=== PATIENT | female | born 1955 | race Caucasian/White ===

== ENCOUNTER → 2016-03-18 | Outpatient (CLI) | payer MEDICARE, MEDICAID | LOC: WI 08:46 | PROVIDERS: ATTEND Internal Medicine | DX: Z53.9 Procedure and treatment not carried out, unspecified reason (principal) ==

== ENCOUNTER → 2016-07-28 | Outpatient (CLI) | payer MEDICARE, MEDICAID ==
--- NOTE | 2016-07-28 14:15 | RADIOLOGY REPORT (SQ) ---
EXAM DESCRIPTION: LUMBAR SPINE COMPLETE COMPLETED DATE/TIME: 07/28/2016 12:51 pm REASON FOR STUDY: RADICULOPATHY, THORACOLUMBAR REGION M54.15 RADICULOPATHY, THORACOLUMBAR REGION COMPARISON: MRI 05/06/2016, 05/18/2015 Lumbar myelogram 02/03/2014 NUMBER OF VIEWS: Five views including obliques. TECHNIQUE: AP, lateral, oblique, and sacral radiographic images acquired of the lumbar spine. LIMITATIONS: None. FINDINGS: MINERALIZATION: Osteopenic SEGMENTATION: Normal. No transitional anatomy. ALIGNMENT: Convex rightward lumbar curvature VERTEBRAE: Chronic appearing 25% upper endplate compression at L1 DISCS: Post discectomy and fusion with posterior element hardware and disc spacer at L4-5. Asymmetri c left greater than right disc space loss of height at L3-4 POSTERIOR ELEMENTS: Bilateral transpedicular screws and dorsal fixation hardware at L4-5. No lucency around the hardware to suggest loosening. Facet arthropathy left greater than right at L5-S1 HARDWARE: As above PARASPINAL SOFT TISSUES: Calcified abdominal aorta without calcified aneurysm PELVIS: Intact as visualized. No fractures or worrisome bone lesions. SI joints intact. OTHER: No other significant finding. IMPRESSION: Stable appearance compared to previous studies TECHNICAL DOCUMENTATION: JOB ID: [id number]- All Rights Reserved
== END ==
LOC: OD 12:24
PROVIDERS: ATTEND Internal Medicine
DX: M54.15 Radiculopathy, thoracolumbar region (principal)
CPT/HCPCS: 72110

== ENCOUNTER → 2016-09-19 | Outpatient (CLI) | payer MEDICARE, MEDICAID ==
--- NOTE | 2016-09-19 13:02 | WOMENS IMAGING REPORT ---
EXAM DESCRIPTION: BILAT DIAGNOSTIC MAMMO W/CAD; U/S BREAST UNILAT LIMITED COMPLETED DATE/TIME: 09/19/2016 11:02 am; 09/19/2016 12:34 pm REASON FOR STUDY: N64.4, MASTODYNIA; MASTODYNIA BILATERAL N64.4 MASTODYNIA COMPARISON: 12/10/2015, 03/17/2015, and 05/16/2013. TECHNIQUE: Standard craniocaudal and mediolateral oblique views of each breast recorded using digita l acquisition. Additional true lateral views of both breasts also acquired. LIMITATIONS: None. FINDINGS: RIGHT BREAST MASSES: No suspicious masses. CALCIFICATIONS: No new or suspicious calcifications. ARCHITECTURAL DISTORTION: None. DEVELOPING DENSITY: None. ASYMMETRY: None noted. OTHER: No other significant findings. LEFT BREAST MASSES: No suspicious masses. CALCIFICATIONS: No new or suspicious calcifications. ARCHITECTURAL DISTORTION: None. DEVELOPING DENSITY: None. ASYMMETRY: Stable mild asymmetry. OTHER: No other significant finding. Read with the assistance of CAD: .[facility] - R2 Cenova Version 1.3 .[facility] - R2 Cenova Version 1.3 .[facility] - R2 Cenova Version 2.4 .[facility] - R2 Cenova Version 2.4 .[facility] - R2 Windows Application Packager Version 9.2 BREAST ULTRASOUND: TECHNIQUE: Static and dynamic grayscale images acquired of the right and left breast in the specific areas of clinical/mammographic concern. Selected color Doppler images recorded. ELASTOGRAPHY PERFORMED: No. LIMITATIONS: None. FINDINGS: MASS: No mass identified. Normal glandular tissue. ELASTOGRAPHY CHARACTERISTICS: Not applicable. OTHER: No other significant finding. IMPRESSION: Stable mammographic appearance of both breasts. Stable mild asymmetry in the left breas t. No worrisome mammographic or sonographic finding in either breast in the areas of concern. BREAST DENSITY: b. There are scattered areas of fibroglandular density. BIRAD: 2 Benign findings. RECOMMENDATION: RECOMMENDED FOLLOW UP: Birads 1 or 2: The patient should resume routine screening . SPECIFIC INTERVENTION/IMAGING/CONSULTATION RECOMMENDED:No additional intervention/ imaging/consultati on needed at this time. COMMUNICATION:The imaging findings were not discussed with the patient. Her referring provider has be en notified of the findings. COMMENT: The patient has been notified of the results by letter per MQSA requirements. Additional no tification policies are in place for contacting patient with suspicious or incomplete findings. Quality ID #225: The [employer] recommends an annual screening mammogram for women aged 40 years or over. This facility utilizes a reminder system to ensure that all patients receive reminder letters, and/or direct phone calls for appointments. This includes reminders for routine scr eening mammograms, diagnostic mammograms, or other Breast Imaging Interventions when appropriate. Th is patient will be placed in the appropriate reminder system. The [employer] (ACR) has developed recommendations for screening MRI of the breast s in certain patient populations, to be used in conjunction with mammography. Breast MRI surveillanc e may be appropriate for women with more than 20% lifetime risk of developing breast cancer as deter mined by genetic testing, significant family history of the disease, or history of mantle radiation f or Hodgkins Disease. ACR Practice Guidelines 2008. TECHNICAL DOCUMENTATION: FINDING NUMBER: (1) ASSESSMENT: (1) JOB ID: [id number] [employer]- All Rights Reserved
--- NOTE | 2016-09-19 13:02 | WOMENS IMAGING REPORT ---
EXAM DESCRIPTION: BILAT DIAGNOSTIC MAMMO W/CAD; U/S BREAST UNILAT LIMITED COMPLETED DATE/TIME: 09/19/2016 11:02 am; 09/19/2016 12:34 pm REASON FOR STUDY: N64.4, MASTODYNIA; MASTODYNIA BILATERAL N64.4 MASTODYNIA COMPARISON: 12/10/2015, 03/17/2015, and 05/16/2013. TECHNIQUE: Standard craniocaudal and mediolateral oblique views of each breast recorded using digita l acquisition. Additional true lateral views of both breasts also acquired. LIMITATIONS: None. FINDINGS: RIGHT BREAST MASSES: No suspicious masses. CALCIFICATIONS: No new or suspicious calcifications. ARCHITECTURAL DISTORTION: None. DEVELOPING DENSITY: None. ASYMMETRY: None noted. OTHER: No other significant findings. LEFT BREAST MASSES: No suspicious masses. CALCIFICATIONS: No new or suspicious calcifications. ARCHITECTURAL DISTORTION: None. DEVELOPING DENSITY: None. ASYMMETRY: Stable mild asymmetry. OTHER: No other significant finding. Read with the assistance of CAD: .[facility] - R2 Cenova Version 1.3 .[facility] - R2 Cenova Version 1.3 .[facility] - R2 Cenova Version 2.4 .[facility] [place] - R2 Cenova Version 2.4 .[facility] - R2 Technical Support Internship Version 9.2 BREAST ULTRASOUND: TECHNIQUE: Static and dynamic grayscale images acquired of the right and left breast in the specific areas of clinical/mammographic concern. Selected color Doppler images recorded. ELASTOGRAPHY PERFORMED: No. LIMITATIONS: None. FINDINGS: MASS: No mass identified. Normal glandular tissue. ELASTOGRAPHY CHARACTERISTICS: Not applicable. OTHER: No other significant finding. IMPRESSION: Stable mammographic appearance of both breasts. Stable mild asymmetry in the left breas t. No worrisome mammographic or sonographic finding in either breast in the areas of concern. BREAST DENSITY: b. There are scattered areas of fibroglandular density. BIRAD: 2 Benign findings. RECOMMENDATION: RECOMMENDED FOLLOW UP: Birads 1 or 2: The patient should resume routine screening . SPECIFIC INTERVENTION/IMAGING/CONSULTATION RECOMMENDED:No additional intervention/ imaging/consultati on needed at this time. COMMUNICATION:The imaging findings were not discussed with the patient. Her referring provider has be en notified of the findings. COMMENT: The patient has been notified of the results by letter per MQSA requirements. Additional no tification policies are in place for contacting patient with suspicious or incomplete findings. Quality ID #[id number]: The [employer] recommends an annual screening mammogram for women aged 40 years or over. This facility utilizes a reminder system to ensure that all patients receive reminder letters, and/or direct phone calls for appointments. This includes reminders for routine scr eening mammograms, diagnostic mammograms, or other Breast Imaging Interventions when appropriate. Th is patient will be placed in the appropriate reminder system. The [employer] (ACR) has developed recommendations for screening MRI of the breast s in certain patient populations, to be used in conjunction with mammography. Breast MRI surveillanc e may be appropriate for women with more than 20% lifetime risk of developing breast cancer as deter mined by genetic testing, significant family history of the disease, or history of mantle radiation f or Hodgkins Disease. ACR Practice Guidelines 2008. TECHNICAL DOCUMENTATION: FINDING NUMBER: (1) ASSESSMENT: (1) JOB ID: [id number] [employer]- All Rights Reserved
--- NOTE | 2016-09-19 13:02 | WOMENS IMAGING REPORT ---
EXAM DESCRIPTION: BILAT DIAGNOSTIC MAMMO W/CAD; U/S BREAST UNILAT LIMITED COMPLETED DATE/TIME: 09/19/2016 11:02 am; 09/19/2016 12:34 pm REASON FOR STUDY: N64.4, MASTODYNIA; MASTODYNIA BILATERAL N64.4 MASTODYNIA COMPARISON: 12/10/2015, 03/17/2015, and 05/16/2013. TECHNIQUE: Standard craniocaudal and mediolateral oblique views of each breast recorded using digita l acquisition. Additional true lateral views of both breasts also acquired. LIMITATIONS: None. FINDINGS: RIGHT BREAST MASSES: No suspicious masses. CALCIFICATIONS: No new or suspicious calcifications. ARCHITECTURAL DISTORTION: None. DEVELOPING DENSITY: None. ASYMMETRY: None noted. OTHER: No other significant findings. LEFT BREAST MASSES: No suspicious masses. CALCIFICATIONS: No new or suspicious calcifications. ARCHITECTURAL DISTORTION: None. DEVELOPING DENSITY: None. ASYMMETRY: Stable mild asymmetry. OTHER: No other significant finding. Read with the assistance of CAD: .[facility] - R2 Cenova Version 1.3 .[facility] - R2 Cenova Version 1.3 .[facility] - R2 Cenova Version 2.4 .[facility] - R2 Cenova Version 2.4 .[facility] - R2 Casket Upholsterer Version 9.2 BREAST ULTRASOUND: TECHNIQUE: Static and dynamic grayscale images acquired of the right and left breast in the specific areas of clinical/mammographic concern. Selected color Doppler images recorded. ELASTOGRAPHY PERFORMED: No. LIMITATIONS: None. FINDINGS: MASS: No mass identified. Normal glandular tissue. ELASTOGRAPHY CHARACTERISTICS: Not applicable. OTHER: No other significant finding. IMPRESSION: Stable mammographic appearance of both breasts. Stable mild asymmetry in the left breas t. No worrisome mammographic or sonographic finding in either breast in the areas of concern. BREAST DENSITY: b. There are scattered areas of fibroglandular density. BIRAD: 2 Benign findings. RECOMMENDATION: RECOMMENDED FOLLOW UP: Birads 1 or 2: The patient should resume routine screening . SPECIFIC INTERVENTION/IMAGING/CONSULTATION RECOMMENDED:No additional intervention/ imaging/consultati on needed at this time. COMMUNICATION:The imaging findings were not discussed with the patient. Her referring provider has be en notified of the findings. COMMENT: The patient has been notified of the results by letter per MQSA requirements. Additional no tification policies are in place for contacting patient with suspicious or incomplete findings. Quality ID #[id number]: The [employer] recommends an annual screening mammogram for women aged 40 years or over. This facility utilizes a reminder system to ensure that all patients receive reminder letters, and/or direct phone calls for appointments. This includes reminders for routine scr eening mammograms, diagnostic mammograms, or other Breast Imaging Interventions when appropriate. Th is patient will be placed in the appropriate reminder system. The [employer] (ACR) has developed recommendations for screening MRI of the breast s in certain patient populations, to be used in conjunction with mammography. Breast MRI surveillanc e may be appropriate for women with more than 20% lifetime risk of developing breast cancer as deter mined by genetic testing, significant family history of the disease, or history of mantle radiation f or Hodgkins Disease. ACR Practice Guidelines 2008. TECHNICAL DOCUMENTATION: FINDING NUMBER: (1) ASSESSMENT: (1) JOB ID: [id number] [employer]- All Rights Reserved
== END ==
LOC: WI 10:36
PROVIDERS: ATTEND Physician Assistant
DX: N64.4 Mastodynia (principal)
CPT/HCPCS: 76642; G0204; 77066

== ENCOUNTER 2017-02-12 19:34 | Inpatient (IN) | payer MEDICARE, MEDICAID ==
[2017-02-12] MEDS ORDERED: IPRATROPIUM/ALBUTEROL 0.5-2.5 MG/3 ML AMPUL NEB ONE ×3 (19:57→20:08)
[2017-02-12] MEDS ORDERED: METHYLPREDNISOLONE INJ 125 MG/2 ML SDV IV ONE (19:58)
[2017-02-12] MEDS ORDERED: MAGNESIUM SULFATE/D5W 1 GM/100 ML RTUPB IV PRN (19:58)
--- NOTE | 2017-02-12 20:01 | ER Document Report ---
ED Respiratory Problem - General Chief Complaint: Breathing Difficulty Stated Complaint: DIFFICULTY BREATHING Time Seen by Provider: 02/12/17 19:54 Notes: Patient is a 61-year-old female that comes emergency department for chief complaint of difficulty breathing. She states she has a history of COPD, she still smokes, she has had worsening symptoms for the past 5 days. She is not on home oxygen, she is using a home nebulizer which she states is not helping. She states she thinks she got "bronchitis" from her relative. She denies fevers. She is up-to-date on her influenza vaccine. She does admit to previous admissions for COPD but denies ever being intubated. TRAVEL OUTSIDE OF THE [place] IN LAST 30 DAYS: No - Related Data Allergies/Adverse Reactions: cephalexin monohydrate [From Keflex] Adverse Reaction (Mild, Verified 02/12/17 19:36) alivia erythromycin base [Erythromycin Base] Adverse Reaction (Mild, Verified 02/12/17 19:36) alivia Past Medical History - General Information source: Patient - Social History Smoking Status: Current Every Day Smoker Frequency of alcohol use: None Drug Abuse: None Lives with: Family Family History: Reviewed & Not Pertinent Patient has suicidal ideation: No Patient has homicidal ideation: No - Past Medical History Cardiac Medical History: Denies: Hx Coronary Artery Disease, Hx Heart Attack, Hx Hypertension Pulmonary Medical History: Reports: Hx Bronchitis - URI, Hx COPD - inhalers Denies: Hx Asthma, Hx Pneumonia, Hx Tuberculosis Neurological Medical History: Denies: Hx Cerebrovascular Accident, Hx Seizures Renal/ Medical History: Denies: Hx Peritoneal Dialysis Musculoskeltal Medical History: Denies Hx Arthritis Psychiatric Medical History: Reports: Hx Depression Past Surgical History: Reports: Hx Hysterectomy, Hx Orthopedic Surgery - back surgery - lumbar fusion, carpal tunnel surgery, Hx Urinary Tract Surgery - bladder tuck. Denies: Hx Pacemaker - Immunizations Hx Diphtheria, Pertussis, Tetanus Vaccination: Yes Hx Pneumococcal Vaccination: 02/27/13 Review of Systems - Review of Systems Constitutional: No symptoms reported EENT: No symptoms reported Cardiovascular: No symptoms reported Respiratory: See HPI Gastrointestinal: No symptoms reported Genitourinary: No symptoms reported Female Genitourinary: No symptoms reported Musculoskeletal: No symptoms reported Skin: No symptoms reported Hematologic/Lymphatic: No symptoms reported Neurological/Psychological: No symptoms reported Physical Exam - Vital signs Vitals: Temp Pulse Resp BP Pulse Ox 98.2 F 95 20 142/83 H 94 02/12/17 19:42 02/12/17 19:42 02/12/17 19:42 02/12/17 19:42 02/12/17 19:42 Interpretation: Normal - General General appearance: Alert, Anxious In distress: Mild - HEENT Head: Normocephalic, Atraumatic Eyes: Normal Pupils: PERRL - Respiratory Respiratory status: Respiratory distress - Mild, Labored, Tachypnea Chest status: Nontender Breath sounds: Decreased air movement - Decreased air movement throughout, expiratory wheezes throughout, a few scattered coarse breath sounds additionally , no rales, no other abnormality noted otherwise, Wheezing Chest palpation: Normal - Cardiovascular Rhythm: Regular. No: Tachycardia Heart sounds: Normal auscultation, S1 appreciated, S2 appreciated Murmur: No - Abdominal Inspection: Normal Distension: No distension Bowel sounds: Normal Tenderness: Nontender. No: Tender, Guarding - Back Back: Normal, Nontender. No: Tender, CVA tenderness - Extremities General upper extremity: Normal inspection, Nontender, Normal strength, Normal temperature General lower extremity: Normal inspection, Nontender, Normal strength, Normal temperature. No: Edema - Neurological Neuro grossly intact: Yes Cognition: Normal Orientation: AAOx4 [place] Coma Scale Eye Opening: Spontaneous Jaya Coma Scale Verbal: Oriented [place] Coma Scale Motor: Obeys Commands [place] Coma Scale Total: 15 Speech: Normal Motor strength normal: LUE, RUE, LLE, RLE Sensory: Normal - Psychological Associated symptoms: Normal affect, Normal mood - Skin Skin Temperature: Warm Skin Moisture: Dry Skin Color: Normal Course - Re-evaluation Re-evalutation: On initial presentation patient is in mild respiratory distress with tachypnea, labored breathing, expiratory wheezes. Presentation consistent with COPD exacerbation. Pulse oxygenation is 94%. Beginning treatments, will monitor closely. On reevaluation patient still has tachypnea and mildly labored breathing but she is moving air much better, she states she feels improved. On 2 L nasal cannula her pulse oxygen saturation is ranging from 91-95%. Clinically she appears improved. Chest x-ray unremarkable. CBC, CMP, cardiac enzymes unremarkable. EKG showing sinus rhythm with no T-wave inversions or ST segment changes in consecutive leads. On monitoring patient had 2 episodes of what appeared to be possibly ventricular tachycardia. Patient denies having any dizziness, palpitations, or chest pain. She denies history of the same. Patient given magnesium for COPD exacerbation. 02/12/17 On reevaluation patient is significantly improved from prior but she still has expiratory wheezes and states she feels somewhat out of breath. She still has mild tachypnea. Patient will most likely not be a candidate for home therapy as a result. She declines ambulation with monitoring. Because of significant COPD exacerbation with only partial alleviation of symptoms along with possible tachyarrhythmias patient will be discussed with hospitalist for admission. Patient states agreement with this plan. Discussed with Dr. Maldonado, internal medicine, patient will be admitted to the [facility] full admission. - Vital Signs Vital signs: Temp Pulse Resp BP Pulse Ox 98.2 F 95 19 139/76 H 93 02/12/17 19:42 02/12/17 19:42 02/12/17 22:02 02/12/17 22:02 02/12/17 22:02 - Laboratory Result Diagrams: 02/12/17 20:10 02/12/17 20:10 Laboratory results interpreted by me: 02/12/17 02/12/17 20:10 20:10 RDW 18.9 H Est GFR (Non-Af Amer) 57 L Creatine Kinase 158 H Discharge - Discharge Clinical Impression: COPD exacerbation, Shortness of breath, Tachyarrhythmia Condition: Stable Disposition: ADMITTED INPATIENT Admitting Provider: Hospitalist Unit Admitted: [facility]
[2017-02-12 20:24] LABS: ABSOLUTE BASOPHILS # (AUTO) 0.1 10^3/uL (0.0-0.2); ABSOLUTE EOSINOPHILS # (AUTO) 0.1 10^3/uL (0.0-0.6); ABSOLUTE MONOCYTES (AUTO) 0.6 10^3/uL (0.1-1.4); ABSOLUTE NEUT (AUTO) 5.1 10^3/uL (1.7-8.2); BASOPHILS % (AUTO) 0.8 % (0-2); EOSINOPHILS % (AUTO) 0.9 % (0-6); HEMATOCRIT 39.6 % (36.0-47.0); HEMOGLOBIN 13.6 g/dL (12.0-15.5); HGB HCT DIFFERENCE 1.2; LYMPHOCYTES % (AUTO) 25.4 % (13-45); MEAN CORPUSCULAR HEMOGLOBIN 28.9 pg (27.0-33.4); MEAN CORPUSCULAR HGB CONC 34.3 g/dL (32.0-36.0); MEAN CORPUSCULAR VOLUME 84 fl (80-97); MONOCYTES % (AUTO) 8.2 % (3-13); RED BLOOD COUNT 4.69 10^6/uL (3.72-5.28); RED CELL DISTRIBUTION WIDTH 18.9 % (11.5-14.0); SEGMENTED NEUTROPHILS % (AUTO) 64.7 % (42-78); WHITE BLOOD COUNT 7.8 10^3/uL (4.0-10.5)
[2017-02-12 20:41] LABS: ALANINE AMINOTRANSFERASE 28 U/L (9-52); ALBUMIN 3.9 g/dL (3.5-5.0); ALKALINE PHOSPHATASE 97 U/L (38-126); ANION GAP 12 (5-19); ASPARTATE AMINO TRANSFERASE 19 U/L (14-36); BILIRUBIN,DIRECT 0.2 mg/dL (0.0-0.4); BILIRUBIN,TOTAL 0.2 mg/dL (0.2-1.3); BLOOD UREA NITROGEN 11 mg/dL (7-20); CALCIUM 8.9 mg/dL (8.4-10.2); CARBON DIOXIDE 28 mmol/L (22-30); CHLORIDE 105 mmol/L (98-107); CREATINE KINASE 158 U/L (30-135); CREATININE RESULT 0.99 mg/dL (0.52-1.25); GLUCOSE 83 mg/dL (75-110); POTASSIUM 4.4 mmol/L (3.6-5.0); SODIUM 144.6 mmol/L (137-145); TOTAL PROTEIN 6.4 g/dL (6.3-8.2)
[2017-02-12 20:53] LABS: CREATINE KINASE MB 1.77 ng/mL (<4.55)
--- NOTE | 2017-02-12 20:53 | RADIOLOGY REPORT (SQ) ---
EXAM DESCRIPTION: CHEST SINGLE VIEW COMPLETED DATE/TIME: 02/12/2017 8:23 pm REASON FOR STUDY: difficulty breathing COMPARISON: 2015 NUMBER OF VIEWS: One view. TECHNIQUE: Single frontal radiographic view of the chest acquired. LIMITATIONS: None. FINDINGS: LUNGS AND PLEURA: Hyperinflated but clear. Chronic appearance. No developing opacities. MEDIASTINUM AND HILAR STRUCTURES: No masses. Contour normal. HEART AND VASCULAR STRUCTURES: Heart normal in size. Normal vasculature. BONES: No acute findings. HARDWARE: None in the chest. OTHER: No other significant finding. IMPRESSION: NO SIGNIFICANT RADIOGRAPHIC FINDING IN THE CHEST. TECHNICAL DOCUMENTATION: JOB ID: [id number] [employer]- All Rights Reserved
[2017-02-12 20:54] LABS: TROPONIN I < 0.012 ng/mL
[2017-02-12] MEDS ORDERED: LEVALBUTEROL HCL NEB 1.25 MG/3 ML AMPUL NEB PRN (22:11)
[2017-02-12] MEDS ORDERED: ACETAMINOPHEN 325 MG TABLET PO PRN (22:11)
[2017-02-12] MEDS ORDERED: AZTREONAM 1 GM in DEXTROSE 5%-WATER 50 ML IV ONE (22:30)
[2017-02-12] MEDS ORDERED: AZTREONAM INJ 1 GM VIAL IV PRN (22:46)
--- NOTE | 2017-02-12 22:57 | EKG REPORT ---
SEVERITY:- ABNORMAL ECG - SINUS RHYTHM NONSPECIFIC INTRAVENTRICULAR CONDUCTION DELAY ST DEPRESSION, CONSIDER ISCHEMIA, INF LEADS : Confirmed by: Cuca Zhu 12-Feb-2017 22:56:30
[2017-02-12] MEDS ORDERED: LEVOFLOXACIN 750 MG/D5W RTU 750 MG/150 ML RTUPB IV ONE (23:00)
--- NOTE | 2017-02-12 23:23 | PDOC H&P ---
History of Present Illness Admission Date/PCP: 02/12/17 22:05 RONEN REMY History of Present Illness: GERRI DUTTA is a 61 year old female with a PMH of COPD, chronic pain on chronic opiates, ongoing tobacco abuse who presents to the emergency department with complaints of shortness of breath. Patient reports that for the last 5 days she has had a cough that has been productive of scant yellow green sputum. She reports she has become increasingly short of breath over the last several days thus precipitating her presentation. Patient denies any associated fevers chills or other upper respiratory tract symptoms. While in the emergency department, patient was receiving magnesium Solu-Medrol, and breathing treatments, patient had what appeared to be a short run of NSVT. She is referred to the hospitalist service for COPD exacerbation and evaluation of tachyarrhythmia. Patient's medications are currently undergoing reconciliation. Current list is automatically generated by [employer] and does not reflect an accurate description of her medications. Due to the urgent/emergent nature of her condition, she is admitted without a full list. Past Medical History Cardiac Medical History: Denies: Coronary Artery Disease, Myocardial Infarction, Hypertension Pulmonary Medical History: Reports: Bronchitis - URI, Chronic Obstructive Pulmonary Disease (COPD) - inhalers Denies: Asthma, Pneumonia, Tuberculosis Neurological Medical History: Denies: Seizures Musculoskeltal Medical History: Denies: Arthritis Psychiatric Medical History: Reports: Depression, Tobacco Dependency Hematology: Denies: Anemia Past Surgical History Past Surgical History: Reports: Hysterectomy, Orthopedic Surgery - back surgery - lumbar fusion, carpal tunnel surgery, Other - Rectocele, bladder tack Denies: Pacemaker Social History Lives with: Family Smoking Status: Current Every Day Smoker Cigarettes Packs Per Day: 1.5 Frequency of Alcohol Use: None Hx Recreational Drug Use: No Hx Prescription Drug Abuse: No - Advance Directive Resuscitation Status: Full Code Surrogate healthcare decision maker:: Sylvester Dutta, Family History Family History: Malignancy Parental Family History Reviewed: Yes Children Family History Reviewed: Yes Sibling(s) Family History Reviewed.: Yes Medication/Allergy Home Medications: Diazepam [Valium 5 mg Tablet] 10 mg PO DAILY 04/04/12 Fluticasone/Salmeterol [Advair 250-50 Diskus 28 dose] 1 inh IH Q12H 04/29/12 Alendronate Sodium [Fosamax] 70 mg PO .CLARIFY 10/02/13 Linaclotide [Linzess] 290 mcg PO DAILY 10/02/13 Pregabalin [Lyrica 50 mg Capsule] 75 mg PO DAILY 10/02/13 Duloxetine HCl [Cymbalta] 60 mg PO 03/06/15 Oxycodone HCl 15 mg PO BID 03/06/15 Zolpidem Tartrate [Ambien 5 mg Tablet] 10 mg PO QHS 03/06/15 Penicillin V Potassium [Penicillin Vk 500 mg Tablet] 500 mg PO BID #14 tablet Phenol/Sodium Phenolate [Chloraseptic Sore Throat [place] 177 ml] 2 sprays MM Q2HP PRN #1 bottle 02/19/16 Prednisone [Deltasone 10 mg Tablet] 10 mg PO ASDIR PRN #21 tablet 02/19/16 Allergies/Adverse Reactions: cephalexin monohydrate [From Keflex] Adverse Reaction (Mild, Verified 02/12/17 19:36) alivia erythromycin base [Erythromycin Base] Adverse Reaction (Mild, Verified 02/12/17 19:36) alivia Review of Systems Constitutional: ABSENT: chills, fever(s), headache(s), weight gain, weight loss Eyes: ABSENT: visual disturbances Ears: ABSENT: hearing changes Cardiovascular: ABSENT: chest pain, dyspnea on exertion, edema, orthropnea, palpitations Respiratory: PRESENT: cough, dyspnea, sputum. ABSENT: hemoptysis Gastrointestinal: ABSENT: abdominal pain, constipation, diarrhea, hematemesis, hematochezia, nausea, vomiting Genitourinary: ABSENT: dysuria, hematuria Musculoskeletal: ABSENT: joint swelling Integumentary: ABSENT: rash, wounds Neurological: ABSENT: abnormal gait, abnormal speech, confusion, dizziness, focal weakness, syncope Psychiatric: ABSENT: anxiety, depression, homidical ideation, suicidal ideation Endocrine: ABSENT: cold intolerance, heat intolerance, polydipsia, polyuria Hematologic/Lymphatic: ABSENT: easy bleeding, easy bruising Physical Exam Vital Signs: Temp Pulse Resp BP Pulse Ox 98.2 F 95 19 139/76 H 93 02/12/17 19:42 02/12/17 19:42 02/12/17 22:02 02/12/17 22:02 02/12/17 22:02 General appearance: PRESENT: mild distress, well-developed, well-nourished Head exam: PRESENT: atraumatic, normocephalic Eye exam: PRESENT: conjunctiva pink, EOMI, PERRLA. ABSENT: scleral icterus Ear exam: PRESENT: normal external ear exam Mouth exam: PRESENT: moist, tongue midline Throat exam: PRESENT: post pharyngeal erythema - Injection Neck exam: PRESENT: lymphadenopathy. ABSENT: JVD, thyromegaly, tracheal deviation Respiratory exam: PRESENT: prolonged expiratory phas, rhonchi, symmetrical, tachypnea, unlabored, wheezes. ABSENT: accessory muscle use, crackles, rales Cardiovascular exam: PRESENT: RRR, +S1, +S2. ABSENT: diastolic murmur, rubs, systolic murmur Pulses: PRESENT: normal dorsalis pedis pul Vascular exam: PRESENT: normal capillary refill GI/Abdominal exam: PRESENT: normal bowel sounds, soft. ABSENT: distended, guarding, mass, organolmegaly, rebound, tenderness Rectal exam: PRESENT: deferred Extremities exam: PRESENT: clubbing, full ROM. ABSENT: calf tenderness, pedal edema Neurological exam: PRESENT: alert, awake, oriented to person, oriented to place , oriented to time, oriented to situation, CN II-XII grossly intact. ABSENT: motor sensory deficit Psychiatric exam: PRESENT: appropriate affect, normal mood. ABSENT: homicidal ideation, suicidal ideation Skin exam: PRESENT: dry, intact, warm. ABSENT: cyanosis, rash Results Laboratory Results: 02/12/17 02/12/17 02/12/17 20:10 20:10 20:10 WBC 7.8 Hgb 13.6 Hct 39.6 Plt Count 154 Sodium 144.6 Potassium 4.4 Chloride 105 Carbon Dioxide 28 Anion Gap 12 BUN 11 Creatinine 0.99 Glucose 83 Calcium 8.9 Magnesium Total Bilirubin 0.2 Direct Bilirubin 0.2 AST 19 ALT 28 Alkaline Phosphatase 97 Creatine Kinase 158 H CK-MB (CK-2) 1.77 Troponin I < 0.012 Total Protein 6.4 Albumin 3.9 02/12/17 20:10 WBC Hgb Hct Plt Count Sodium Potassium Chloride Carbon Dioxide Anion Gap BUN Creatinine Glucose Calcium Magnesium 1.9 Total Bilirubin Direct Bilirubin AST ALT Alkaline Phosphatase Creatine Kinase CK-MB (CK-2) Troponin I Total Protein Albumin Impressions: Chest X-Ray 02/12/17 19:58 IMPRESSION: NO SIGNIFICANT RADIOGRAPHIC FINDING IN THE CHEST. Status: Imported from PACS Assessment & Plan - Diagnosis (1) COPD exacerbation Is this a current diagnosis for this admission?: Yes Plan: Place patient on scheduled nebulized treatments and re-evaluate for improvement. PRN Xopenex Place patient on IV Solu-Medrol Obtain sputum culture Encourage smoking cessation (2) Acute hypoxemic respiratory failure Is this a current diagnosis for this admission?: Yes Plan: Continue oxygen to maintain saturation between 90 and 94% (3) Chronic prescription opiate use Is this a current diagnosis for this admission?: Yes Plan: Continue patient's home oxycodone (4) Chronic back pain Qualifiers: Back pain location: low back pain Back pain laterality: unspecified Sciatica laterality: sciatica laterality unspecified Is this a current diagnosis for this admission?: Yes Plan: Continue patient's current home meds including oxycodone and Lyrica. (5) Tobacco abuse Is this a current diagnosis for this admission?: Yes Plan: Patient is advised to stop using tobacco. Counseling lasted longer than 3 minutes. (6) Tachyarrhythmia Is this a current diagnosis for this admission?: Yes Plan: Have checked patient's electrolytes which are within normal limits. Will consult cardiology for evaluation. - Time Time Spent: 30 to 50 Minutes Medications reviewed and adjusted accordingly: Yes Anticipated discharge: Home Within: Other - Improvement of patient's symptomatology - Inpatient Certification Based on my medical assessment, after consideration of the patient's comorbidities, presenting symptoms, or acuity I expect that the services needed warrant INPATIENT care.: Yes I certify that my determination is in accordance with my understanding of Medicare's requirements for reasonable and necessary INPATIENT services [42 CFR 412.3e].: Yes Medical Necessity: Need for Nebulizer Therapy and Monitoring of Response, Need for IV Antibiotics Post Hospital Care: D/C Water Resource Manager Documentation
[2017-02-13 00:02] LABS: VENOUS BLOOD BASE EXCESS 4.3 mmol/L; VENOUS BLOOD HCO3 29.4 mmol/L (20-32); VENOUS BLOOD PCO2 45.5 mmHg (35-63); VENOUS BLOOD PH 7.43 (7.30-7.42)
[2017-02-13] MEDS: OXYCODONE HCL IR 5 MG TABLET PO PRN ×3 (00:04→20:16)
[2017-02-13] MEDS: NORMAL SALINE 1000 ML 1,000 ML IV PRN (00:16)
[2017-02-13] MEDS ORDERED: FLUOXETINE HCL 20 MG CAPSULE PO ONE (00:30)
[2017-02-13] MEDS ORDERED: PREGABALIN 75 MG CAPSULE PO ONE (00:30)
[2017-02-13] MEDS ORDERED: GUAIFENESIN 600 MG TABLET.SA PO ONE (01:00)
[2017-02-13] MEDS ORDERED: AZTREONAM INJ 1 GM VIAL ONE (01:42)
[2017-02-13] MEDS: IPRATROPIUM/ALBUTEROL 0.5-2.5 MG/3 ML AMPUL NEB SCH ×4 (02:08→19:40)
[2017-02-13] MEDS: AZTREONAM 1 GM in DEXTROSE 5%-WATER 50 ML IV SCH ×3 (05:50→21:14)
[2017-02-13 07:26] LABS: HEMOGLOBIN 12.4 g/dL (12.0-15.5); HGB HCT DIFFERENCE 0.2; MEAN CORPUSCULAR HEMOGLOBIN 28.6 pg (27.0-33.4); MEAN CORPUSCULAR HGB CONC 33.6 g/dL (32.0-36.0); MEAN CORPUSCULAR VOLUME 85 fl (80-97); RED BLOOD COUNT 4.35 10^6/uL (3.72-5.28); RED CELL DISTRIBUTION WIDTH 18.6 % (11.5-14.0); WHITE BLOOD COUNT 6.8 10^3/uL (4.0-10.5)
[2017-02-13] MEDS: PREGABALIN 75 MG CAPSULE PO SCH ×3 (07:29→21:13)
[2017-02-13 07:51] LABS: ANION GAP 11 (5-19); BLOOD UREA NITROGEN 11 mg/dL (7-20); CALCIUM 8.5 mg/dL (8.4-10.2); CARBON DIOXIDE 25 mmol/L (22-30); CHLORIDE 104 mmol/L (98-107); CREATININE RESULT 0.82 mg/dL (0.52-1.25); GLUCOSE 140 mg/dL (75-110); POTASSIUM 4.7 mmol/L (3.6-5.0); SODIUM 139.6 mmol/L (137-145)
[2017-02-13] MEDS ORDERED: NICOTINE 21 MG/24 HR PATCH.TD24 TD SCH (10:00)
[2017-02-13] MEDS ORDERED: LEVOFLOXACIN 750 MG/D5W RTU 750 MG/150 ML RTUPB IV SCH (10:00)
[2017-02-13] MEDS ORDERED: FLUOXETINE HCL 20 MG CAPSULE PO SCH (10:00)
[2017-02-13] MEDS ORDERED: ENOXAPARIN SODIUM INJ 40 MG/0.4 ML DISP.SYRIN SUBCUT SCH (10:00)
[2017-02-13] MEDS: GUAIFENESIN 600 MG TABLET.SA PO SCH ×2 (10:20→21:14)
[2017-02-13] MEDS: FAMOTIDINE 20 MG TABLET PO SCH ×2 (10:21→21:14)
[2017-02-13] MEDS: LUBIPROSTONE 24 MCG CAPSULE PO SCH ×2 (11:22→18:13)
--- NOTE | 2017-02-13 18:50 | PDOC PROGRESS REPORT ---
Subjective Progress Note for:: 02/13/17 Subjective:: 61-year-old female with heavy nicotine use who presented to the hospital with acute onset shortness of breath and was diagnosed with COPD exacerbation. She feels somewhat better today. Plan to discharge home tomorrow if she continues to improve. Reason For Visit: COPD EXACERBATION, ACUTE HYPOXEMIC RESPIRATORY Physical Exam Vital Signs: Temp Pulse Resp BP Pulse Ox 98.6 F 98 16 108/59 L 98 02/13/17 15:38 02/13/17 15:38 02/13/17 14:00 02/13/17 15:38 02/13/17 16:35 Intake & Output 02/12/17 02/13/17 02/14/17 06:59 06:59 06:59 Intake Total 630 750 Balance 630 750 Weight 61.8 kg Additional comments: This female sitting up in bed not in acute distress Lungs: scattered rhonchi no wheezing no crackles respiratory effort normal Cardiac: S1-S2 regular no murmurs heard no peripheral edema no cyanosis Abdomen: Soft, no focal tenderness normal bowel sounds Skin: Warm and dry Results Laboratory Results: 02/13/17 06:37 02/13/17 06:37 02/12/17 02/13/17 02/13/17 23:45 06:37 06:37 WBC 6.8 RBC 4.35 Hgb 12.4 Hct 37.0 MCV 85 MCH 28.6 MCHC 33.6 RDW 18.6 H Plt Count 136 L VBG pH 7.43 H VBG pCO2 45.5 VBG HCO3 29.4 VBG Base Excess 4.3 Sodium 139.6 Potassium 4.7 Chloride 104 Carbon Dioxide 25 Anion Gap 11 BUN 11 Creatinine 0.82 Est GFR ( Amer) > 60 Est GFR (Non-Af Amer) > 60 Glucose 140 H Calcium 8.5 Impressions: Chest X-Ray 02/12/17 19:58 IMPRESSION: NO SIGNIFICANT RADIOGRAPHIC FINDING IN THE CHEST. Assessment & Plan - Diagnosis (1) Acute hypoxemic respiratory failure Is this a current diagnosis for this admission?: Yes (2) COPD exacerbation Is this a current diagnosis for this admission?: Yes (3) Chronic prescription opiate use Is this a current diagnosis for this admission?: Yes - Time Time Spent with patient: 25-34 minutes - Plan Summary Plan Summary: Continue current treatment for COPD exacerbation. Plan for discharge home tomorrow if she continues to improve.
[2017-02-14] MEDS: IPRATROPIUM/ALBUTEROL 0.5-2.5 MG/3 ML AMPUL NEB SCH ×2 (02:00→08:18)
[2017-02-14] MEDS: NORMAL SALINE 1000 ML 1,000 ML IV PRN (04:48)
[2017-02-14] MEDS: PREGABALIN 75 MG CAPSULE PO SCH (05:37)
[2017-02-14] MEDS: AZTREONAM 1 GM in DEXTROSE 5%-WATER 50 ML IV SCH (05:37)
[2017-02-14 05:44] LABS: ALANINE AMINOTRANSFERASE 25 U/L (9-52); ALBUMIN 3.6 g/dL (3.5-5.0); ALKALINE PHOSPHATASE 93 U/L (38-126); ANION GAP 8 (5-19); ASPARTATE AMINO TRANSFERASE 21 U/L (14-36); BILIRUBIN,DIRECT 0.3 mg/dL (0.0-0.4); BILIRUBIN,TOTAL 0.3 mg/dL (0.2-1.3); BLOOD UREA NITROGEN 12 mg/dL (7-20); CALCIUM 8.8 mg/dL (8.4-10.2); CARBON DIOXIDE 28 mmol/L (22-30); CHLORIDE 104 mmol/L (98-107); CREATININE RESULT 0.91 mg/dL (0.52-1.25); GLUCOSE 100 mg/dL (75-110); MAGNESIUM 2.3 mg/dL (1.6-2.3); PHOSPHORUS 2.5 mg/dL (2.5-4.5); POTASSIUM 4.3 mmol/L (3.6-5.0); TOTAL PROTEIN 6.6 g/dL (6.3-8.2)
[2017-02-14 08:02] VITALS: BP 119/55
--- NOTE | 2017-02-14 14:16 | PDOC DISCHARGE SUMMARY ---
General - Admit/Disc Date/PCP Admission Date/Primary Care Provider: 02/12/17 22:05 RONEN REMY Discharge Date: 02/14/17 - Discharge Diagnosis (1) Acute hypoxemic respiratory failure Is this a current diagnosis for this admission?: Yes Summary: Secondary to acute COPD exacerbation. (2) COPD exacerbation Is this a current diagnosis for this admission?: Yes (3) Chronic back pain Is this a current diagnosis for this admission?: Yes (4) Tachyarrhythmia Is this a current diagnosis for this admission?: Yes Summary: Unremarkable telemetry. Most likely secondary to the acute COPD exacerbation. - Additional Information Resuscitation Status: Full Code Discharge Diet: Regular Discharge Activity: Activity As Tolerated Prescriptions: Levofloxacin [Levaquin 750 mg Tablet] 750 mg PO DAILY #3 tablet Prednisone 10 mg PO DAILY #39 tablet Home Medications: Albuterol Sulfate [Albuterol Sulfate 2.5mg/3 mL] 3 ml NEB Q4HP PRN 02/13/17 Alendronate Sodium [Fosamax 70 mg Tablet] 70 mg PO MO@1000 02/13/17 Bupropion HCl [Bupropion HCl Sr] 150 mg PO Q12 02/13/17 Diazepam [Valium] 10 mg PO DAILY 02/13/17 Fluoxetine HCl [Prozac 20 mg Capsule] 20 mg PO DAILY 02/13/17 Fluticasone/Salmeterol [Advair 250-50 Diskus 14 Dose/Diskus] 1 puff IN Q12 02/13 Lubiprostone [Amitiza 24 Mcg Capsule] 24 mcg PO BIDBS 02/13/17 Montelukast Sodium [Singulair 10 mg Tablet] 10 mg PO QPM 02/13/17 Oxycodone HCl 15 mg PO Q6HP PRN 02/13/17 Pregabalin [Lyrica] 150 mg PO Q8 02/13/17 Tiotropium [place] [Spiriva Handihaler 5 Cap/Kit (18 Mcg/Cap)] 1 puff IN DAILY 02/13/17 Levofloxacin [Levaquin 750 mg Tablet] 750 mg PO DAILY #3 tablet 02/14/17 Nicotine [Nicoderm 21 mg/24 Hr Transderm Patch] 1 each TD DAILY patch.[id number] Prednisone 10 mg PO DAILY #39 tablet 02/14/17 History of Present Illness History of Present Illness: TARITA C CLAUDIA is a 61 year old female with a history of tobacco abuse and COPD who presented with shortness of breath. The patient had a 5 day history of cough and wheezing. The patient when she presented to emergency room was also noted to be tachycardic with a sinus tachycardia. Patient is admitted for treatment of acute COPD exacerbation. Hospital Course Hospital Course: 61-year-old female with a history of acute COPD exacerbation who presented with shortness of breath consistent with an acute COPD exacerbation. She was treated with IV Solu-Medrol as well as nebulizers. She had quick improvement in her respiratory status on the day of discharge was back to her baseline respiratory status. Patient is encouraged to quit smoking. She also did have some episodes of tachycardia in the emergency room. Telemetry did not show any significant cardiac arrhythmias other than SVT. Patient is sent home on a prednisone taper. Physical Exam Vital Signs: Temp Pulse Resp BP Pulse Ox 97.2 F 79 16 119/55 L 96 02/14/17 08:48 02/14/17 08:48 02/14/17 08:48 02/14/17 07:21 02/14/17 08:48 Intake & Output 02/13/17 02/14/17 02/15/17 06:59 06:59 06:59 Intake Total 630 3222 Balance 630 3222 Weight 61.8 kg 63.2 kg General appearance: PRESENT: no acute distress Eye exam: PRESENT: conjunctiva pink. ABSENT: scleral icterus Mouth exam: PRESENT: moist, tongue midline Neck exam: ABSENT: JVD Respiratory exam: PRESENT: clear to auscultation sanya. ABSENT: rales, rhonchi, wheezes Cardiovascular exam: PRESENT: RRR. ABSENT: diastolic murmur, rubs, systolic murmur GI/Abdominal exam: PRESENT: normal bowel sounds, soft. ABSENT: distended, guarding, mass, organolmegaly, rebound, tenderness Extremities exam: ABSENT: calf tenderness, clubbing, pedal edema Neurological exam: PRESENT: alert, awake, oriented to person, oriented to place , oriented to time, oriented to situation, CN II-XII grossly intact. ABSENT: motor sensory deficit Psychiatric exam: PRESENT: appropriate affect Skin exam: PRESENT: dry, intact, warm. ABSENT: cyanosis, rash Results Laboratory Results: 02/13/17 06:37 02/14/17 04:48 02/14/17 04:48 Sodium 140.0 Potassium 4.3 Chloride 104 Carbon Dioxide 28 Anion Gap 8 BUN 12 Creatinine 0.91 Est GFR ( Amer) > 60 Est GFR (Non-Af Amer) > 60 Glucose 100 Calcium 8.8 Phosphorus 2.5 Magnesium 2.3 Total Bilirubin 0.3 AST 21 ALT 25 Alkaline Phosphatase 93 Total Protein 6.6 Albumin 3.6 Impressions: Chest X-Ray 02/12/17 19:58 IMPRESSION: NO SIGNIFICANT RADIOGRAPHIC FINDING IN THE CHEST. Qualifiers PATEINT BEING DISCHARGED WITH ANY OF THE FOLLOWING DIAGNOSIS?: No Plan Discharge Plan: Patient is discharged home. The patient will follow up with primary care in 2 weeks. Time Spent: Less than 30 Minutes
== END 2017-02-14 09:10 | disposition home or self-care (01) | DRG 190 ==
LOC: ER 19:34 → EH 22:05 → 3W 23:28
PROVIDERS: ADMIT Family Medicine; ATTEND Family Medicine
DX: J44.1 Chronic obstructive pulmonary disease with (acute) exacerbation (principal); J96.01 Acute respiratory failure with hypoxia; G89.29 Other chronic pain; F17.210 Nicotine dependence, cigarettes, uncomplicated; Z79.2 Long term (current) use of antibiotics; Z79.51 Long term (current) use of inhaled steroids; Z79.52 Long term (current) use of systemic steroids; Z79.899 Other long term (current) drug therapy; Z79.891 Long term (current) use of opiate analgesic
CPT/HCPCS: 36415; 71010; 80048; 80053; 82550; 82553; 82803; 83735; 84100; 84484; 85025; 85027; 87040; 93005; 93010; 94640; 94799; 96365; 96375; 99285; J1650; J1956; J2930; J3475; J3490; J7030; J7620

== ENCOUNTER 2017-02-15 12:52 | Observation (INO) | payer MEDICARE, MEDICAID ==
--- NOTE | 2017-02-15 13:40 | ER Document Report ---
ED Medical Screen (RME) - General Chief Complaint: Breathing Difficulty Stated Complaint: DIFFICULTY BREATHING Time Seen by Provider: 02/15/17 13:37 Notes: Patient has COPD and was discharged from this hospital yesterday. She is on Levaquin and prednisone as well as nebulizers. She states she still feels very short of breath and her oxygen saturation was 84% at home. She states she called her doctor and told the doctor about the low saturations. She states she was instructed to come to the emergency department to get oxygen. At triage her saturations were 89%. TRAVEL OUTSIDE OF THE [place] IN LAST 30 DAYS: No - Related Data Allergies/Adverse Reactions: cephalexin monohydrate [From Keflex] Adverse Reaction (Mild, Verified 02/15/17 12:53) anaisky erythromycin base [Erythromycin Base] Adverse Reaction (Mild, Verified 02/15/17 12:53) alivia Past Medical History - Social History Chew tobacco use (# tins/day): No Frequency of alcohol use: None Drug Abuse: None - Past Medical History Cardiac Medical History: Denies: Hx Coronary Artery Disease, Hx Heart Attack, Hx Hypertension Pulmonary Medical History: Reports: Hx Bronchitis - URI, Hx COPD - inhalers Denies: Hx Asthma, Hx Pneumonia, Hx Tuberculosis Neurological Medical History: Denies: Hx Cerebrovascular Accident, Hx Seizures Renal/ Medical History: Denies: Hx Peritoneal Dialysis Musculoskeltal Medical History: Denies Hx Arthritis Psychiatric Medical History: Reports: Hx Depression Past Surgical History: Reports: Hx Hysterectomy, Hx Orthopedic Surgery - back surgery - lumbar fusion, carpal tunnel surgery, Hx Urinary Tract Surgery - bladder tuck, Other - Rectocele, bladder tack. Denies: Hx Pacemaker - Immunizations Hx Diphtheria, Pertussis, Tetanus Vaccination: Yes History of Influenza Vaccine for 11/2016 - 04/2017 Season: Yes Physical Exam - Vital signs Vitals: Temp Pulse Resp BP Pulse Ox 98.0 F 105 H 18 153/96 H 90 L 02/15/17 12:58 02/15/17 12:58 02/15/17 12:58 02/15/17 12:58 02/15/17 12:58 Course - Vital Signs Vital signs: Temp Pulse Resp BP Pulse Ox 98.0 F 105 H 18 153/96 H 90 L 02/15/17 12:58 02/15/17 12:58 02/15/17 12:58 02/15/17 12:58 02/15/17 12:58
[2017-02-15] MEDS ORDERED: IPRATROPIUM/ALBUTEROL 0.5-2.5 MG/3 ML AMPUL NEB ONE ×2 (14:00→14:03)
[2017-02-15 14:03] LABS: ABSOLUTE LYMPHOCYTES (AUTO) 0.7 10^3/uL (0.5-4.7); ABSOLUTE MONOCYTES (AUTO) 0.2 10^3/uL (0.1-1.4); ABSOLUTE NEUT (AUTO) 8.7 10^3/uL (1.7-8.2); BASOPHILS % (AUTO) 0.4 % (0-2); HEMATOCRIT 38.9 % (36.0-47.0); HEMOGLOBIN 13.1 g/dL (12.0-15.5); HGB HCT DIFFERENCE 0.4; LYMPHOCYTES % (AUTO) 7.7 % (13-45); MEAN CORPUSCULAR HEMOGLOBIN 28.5 pg (27.0-33.4); MEAN CORPUSCULAR HGB CONC 33.7 g/dL (32.0-36.0); MEAN CORPUSCULAR VOLUME 85 fl (80-97); MONOCYTES % (AUTO) 1.7 % (3-13); SEGMENTED NEUTROPHILS % (AUTO) 90.2 % (42-78); WHITE BLOOD COUNT 9.7 10^3/uL (4.0-10.5)
[2017-02-15 14:13] LABS: ALANINE AMINOTRANSFERASE 26 U/L (9-52); ALBUMIN 4.2 g/dL (3.5-5.0); ALKALINE PHOSPHATASE 116 U/L (38-126); ANION GAP 13 (5-19); ASPARTATE AMINO TRANSFERASE 20 U/L (14-36); BILIRUBIN,DIRECT 0.1 mg/dL (0.0-0.4); BILIRUBIN,TOTAL 0.3 mg/dL (0.2-1.3); BLOOD UREA NITROGEN 13 mg/dL (7-20); CALCIUM 9.9 mg/dL (8.4-10.2); CARBON DIOXIDE 26 mmol/L (22-30); CHLORIDE 102 mmol/L (98-107); CREATININE RESULT 0.86 mg/dL (0.52-1.25); GLUCOSE 126 mg/dL (75-110); POTASSIUM 4.4 mmol/L (3.6-5.0); SODIUM 141.2 mmol/L (137-145)
--- NOTE | 2017-02-15 15:20 | ER Document Report ---
ED General - General Chief Complaint: Breathing Difficulty Stated Complaint: DIFFICULTY BREATHING Time Seen by Provider: 02/15/17 13:37 Mode of Arrival: Ambulatory Information source: Patient, DrMalina Taylor, [facility] Records Notes: 61-year-old female history of COPD who was discharged from the hospital yesterday without oxygen presents with complaints of shortness breath difficulty breathing. Patient's presentation notes wheezing and shortness of breath upon arrival patient states she called the primary care physician and they told her to be evaluated for her new onset shortness of breath. TRAVEL OUTSIDE OF THE [place] IN LAST 30 DAYS: No - HPI Onset: Last week Onset/Duration: Persistent Quality of pain: No pain Severity: Mild Pain Level: Denies Associated symptoms: Nonproductive cough, Shortness of breath Exacerbated by: Walking Relieved by: Denies Similar symptoms previously: Yes Recently seen / treated by doctor: Yes - Related Data Allergies/Adverse Reactions: cephalexin monohydrate [From Keflex] Adverse Reaction (Mild, Verified 02/15/17 12:53) anaisky erythromycin base [Erythromycin Base] Adverse Reaction (Mild, Verified 02/15/17 12:53) alivia Past Medical History - Social History Smoking Status: Current Every Day Smoker Cigarette use (# per day): Yes Chew tobacco use (# tins/day): No Smoking Education Provided: Yes - Patient counselled regarding cessation for 4 minutes Frequency of alcohol use: None Drug Abuse: None Family History: Reviewed & Not Pertinent Patient has suicidal ideation: No Patient has homicidal ideation: No - Past Medical History Cardiac Medical History: Denies: Hx Coronary Artery Disease, Hx Heart Attack, Hx Hypertension Pulmonary Medical History: Reports: Hx Bronchitis - URI, Hx COPD - inhalers Denies: Hx Asthma, Hx Pneumonia, Hx Tuberculosis Neurological Medical History: Denies: Hx Cerebrovascular Accident, Hx Seizures Renal/ Medical History: Denies: Hx Peritoneal Dialysis Musculoskeltal Medical History: Denies Hx Arthritis Psychiatric Medical History: Reports: Hx Depression Past Surgical History: Reports: Hx Hysterectomy, Hx Orthopedic Surgery - back surgery - lumbar fusion, carpal tunnel surgery, Hx Urinary Tract Surgery - bladder tuck, Other - Rectocele, bladder tack. Denies: Hx Pacemaker - Immunizations Hx Diphtheria, Pertussis, Tetanus Vaccination: Yes Hx Pneumococcal Vaccination: 02/27/13 Review of Systems - Review of Systems Notes: REVIEW OF SYSTEMS: CONSTITUTIONAL : Denies fever, chills, or sweats. Denies recent illness. EENT: Denies eye, ear, throat, or mouth pain or symptoms. Denies nasal or sinus congestion or discharge. Denies throat, tongue, or mouth swelling or difficulty swallowing. CARDIOVASCULAR: Denies chest pain. Denies palpitations or racing or irregular heart beat. Denies ankle edema. RESPIRATORY: Admits shortness breath difficulty breathing GASTROINTESTINAL: Denies abdominal pain or distention. Denies nausea, vomiting , or diarrhea. Denies blood in vomitus, stools, or per rectum. Denies black, tarry stools. Denies constipation. GENITOURINARY: Denies difficulty urinating, painful urination, burning, frequency, blood in urine, or discharge. FEMALE GENITOURINARY: Denies vaginal bleeding, heavy or abnormal periods, irregular periods. Denies vaginal discharge or odor. MUSCULOSKELETAL: Denies back or neck pain or stiffness. Denies joint pain or swelling. SKIN: Denies rash, lesions or sores. HEMATOLOGIC : Denies easy bruising or bleeding. LYMPHATIC: Denies swollen, enlarged glands. NEUROLOGICAL: Denies confusion or altered mental status. Denies passing out or loss of consciousness. Denies dizziness or lightheadedness. Denies headache. Denies weakness or paralysis or loss of use of either side. Denies problems with gait or speech. Denies sensory loss, numbness, or tingling. Denies seizures. PSYCHIATRIC: Denies anxiety or stress. Denies depression, suicidal ideation, or homicidal ideation. ALL OTHER SYSTEMS REVIEWED AND NEGATIVE. PHYSICAL EXAMINATION: GENERAL: Well-appearing, well-nourished and in mild respiratory acute distress. HEAD: Atraumatic, normocephalic. EYES: Pupils equal round and reactive to light, extraocular movements intact, conjunctiva are normal. ENT: Nares patent, oropharynx clear without exudates. Moist mucous membranes. NECK: Normal range of motion, supple without lymphadenopathy LUNGS: Very coarse inspiratory expiratory wheezing with tachypnea HEART: Regular rate and rhythm without murmurs ABDOMEN: Soft, nontender, nondistended abdomen. No guarding, no rebound. No masses appreciated. Female : deferred Musculoskeletal: Normal range of motion, no pitting or edema. No cyanosis. NEUROLOGICAL: Cranial nerves grossly intact. Normal speech, normal gait. Normal sensory, motor exams PSYCH: Normal mood, normal affect. SKIN: Warm, Dry, normal turgor, no rashes or lesions noted. Dictation was performed using [employer] (RCD[employer]) voice recognition software Physical Exam - Vital signs Vitals: Temp Pulse Resp BP Pulse Ox 98.0 F 105 H 18 153/96 H 90 L 02/15/17 12:58 02/15/17 12:58 02/15/17 12:58 02/15/17 12:58 02/15/17 12:58 Course - Re-evaluation Re-evalutation: 02/15/17 15:19 pts primary care office contacted we discussed patient following up for outpatient care tomorrow 02/15/17 16:36 Patient was watched in the emergency department and taken off oxygen after breathing treatments and desatted to 86% on room air at rest. Patient will be placed back on oxygen will be admitted to the hospitalist service - Vital Signs Vital signs: Temp Pulse Resp BP Pulse Ox 98.0 F 105 H 18 153/96 H 90 L 02/15/17 12:58 02/15/17 12:58 02/15/17 12:58 02/15/17 12:58 02/15/17 12:58 - Laboratory Result Diagrams: 02/15/17 13:47 02/15/17 13:47 Laboratory results interpreted by me: 02/15/17 02/15/17 13:47 13:47 RDW 19.0 H Seg Neutrophils % 90.2 H Lymphocytes % 7.7 L Monocytes % 1.7 L Absolute Neutrophils 8.7 H Glucose 126 H - Diagnostic Test Radiology reviewed: Image reviewed, Reports reviewed Critical Care Note - Critical Care Note Total time excluding time spent on procedures (mins): 34 Comments: 34 minutes of critical care time spent in direct contact evaluating and reevaluating the patient, treating symptoms, reviewing labs and studies and speaking with family and consultants excluding any procedures Discharge - Discharge Clinical Impression: COPD exacerbation, Hypoxemia Condition: Stable Disposition: ADMITTED OBSERVATION Admitting Provider: Hospitalist Unit Admitted: Telemetry
[2017-02-15] MEDS ORDERED: METHYLPREDNISOLONE INJ 125 MG/2 ML SDV IV ONE (16:35)
[2017-02-15] MEDS ORDERED: ACETAMINOPHEN 325 MG TABLET PO PRN (16:40)
[2017-02-15] MEDS ORDERED: ONDANSETRON 4 MG TAB.RAPDIS PO PRN (16:40)
--- NOTE | 2017-02-15 17:10 | RADIOLOGY REPORT (SQ) ---
EXAM DESCRIPTION: CTA CHEST COMPLETED DATE/TIME: 02/15/2017 4:16 pm REASON FOR STUDY: sob COMPARISON: Chest films 02/12/2017 CT angio chest 10/29/2013, 05/16/2013 TECHNIQUE: CT scan of the chest performed using helical scanning technique with dynamic intravenous contrast injection. Images reviewed with lung, soft tissue and bone windows. Reconstructed coronal and sagittal MPR images reviewed. Additional 3 dimensional post-processing performed to develop Maximal Intensity Projection images (AR P). All images stored on PACS. All CT scanners at this facility use dose modulation, iterative reconstruction, and/or weight based d osing when appropriate to reduce radiation dose to as low as reasonably achievable (ALARA). [facility]: Dose Right [facility]: CareDose [facility]: Dose Right [facility]: Teradose 4D [facility]: Invisible Puppy CONTRAST TYPE AND DOSE: contrast/concentration: Isovue 370.00 mg/ml; Total Contrast Delivered: 63.0 ml; Total Saline Delivered: 80.0 ml Contrast bolus adequate for pulmonary arteries and aorta. RENAL FUNCTION: Creatinine 0.86 RADIATION DOSE: CT Rad equipment meets quality standard of care and radiation dose reduction techniq ues were employed. CTDIvol: 13.2 - 14.3 mGy. DLP: 521 mGy-cm. . LIMITATIONS: None. FINDINGS: LUNGS AND PLEURA: Minimal increased interstitial markings in the right and left upper lob es, could indicate mild pulmonary edema or early pneumonia superimposed on obstructive lung disease. No pleural effusions. No pneumothorax. AORTA AND GREAT VESSELS: No aneurysm. No dissection. HEART: No pericardial effusion. No significant coronary artery calcifications. PULMONARY ARTERIES: No emboli visualized in the main pulmonary arteries or the segmental branches. HILAR AND MEDIASTINAL STRUCTURES: No identified masses or abnormal nodes. HARDWARE: None in the chest. UPPER ABDOMEN: No significant findings. Limited exam. THYROID AND OTHER SOFT TISSUES: No masses. No adenopathy. BONES: Chronic upper endplate L1 25% compression deformity 3D MIPS: Confirm above findings. OTHER: No other significant finding. IMPRESSION: No CT angio evidence of acute pulmonary emboli or thoracic aortic dissection. Obstructive lung disease with very mild increased interstitial markings at both upper lobes, could in dicate mild pulmonary edema. COMMENT: Quality ID # [id number]: Final reports with documentation of one or more dose reduction techniques (e.g., Automated exposure control, adjustment of the mA and/or kV according to patient size, use of iterative reconstruction technique) TECHNICAL DOCUMENTATION: JOB ID: [id number] [employer]formerly known as [employer]- All Rights Reserved
--- NOTE | 2017-02-15 17:38 | PDOC H&P ---
History of Present Illness Admission Date/PCP: 02/15/17 16:33 RONEN REMY Patient complains of: Shortness of breath History of Present Illness: GERRI TAYLOR is a 61 year old female who was discharged by me from the hospital yesterday after treatment for an acute COPD exacerbation. When the patient left the hospital she was feeling fine. She went home and then smoked a half pack of cigarettes and began to have cough and wheezing and presented back to the emergency room. She was found to have some hypoxia with oxygen saturations around 88%. Patient denies any chest pain. She denies any type of cough. Denies any fevers or chills or chest pain. Patient admitted until home oxygen can be arranged and is restarted on Solu-Medrol. Past Medical History Cardiac Medical History: Denies: Coronary Artery Disease, Myocardial Infarction, Hypertension Pulmonary Medical History: Reports: Bronchitis - URI, Chronic Obstructive Pulmonary Disease (COPD) - inhalers Denies: Asthma, Pneumonia, Tuberculosis Neurological Medical History: Denies: Seizures Endocrine Medical History: Reports: None Renal/ Medical History: Reports: None Malignancy Medical History: Reports: None GI Medical History: Reports: None Musculoskeltal Medical History: Denies: Arthritis Psychiatric Medical History: Reports: Depression Traumatic Medical History: Reports: None Hematology: Reports: None Denies: Anemia Infectious Medical History: Reports: None Past Surgical History Past Surgical History: Reports: Hysterectomy, Orthopedic Surgery - back surgery - lumbar fusion, carpal tunnel surgery, Other - Rectocele, bladder tack Denies: Pacemaker Social History Information Source: Patient Lives with: Spouse/Significant other Smoking Status: Current Every Day Smoker Frequency of Alcohol Use: None Hx Recreational Drug Use: No Drugs: None Hx Prescription Drug Abuse: No - Advance Directive Resuscitation Status: Full Code Family History Family History: Malignancy Parental Family History Reviewed: Yes Children Family History Reviewed: No Sibling(s) Family History Reviewed.: No Medication/Allergy Allergies/Adverse Reactions: cephalexin monohydrate [From Keflex] Adverse Reaction (Mild, Verified 02/15/17 12:53) alivia erythromycin base [Erythromycin Base] Adverse Reaction (Mild, Verified 02/15/17 12:53) alivia Review of Systems Constitutional: ABSENT: chills, fever(s), headache(s), weight gain, weight loss Eyes: ABSENT: visual disturbances Ears: ABSENT: hearing changes Cardiovascular: ABSENT: chest pain, dyspnea on exertion, edema, orthropnea, palpitations Respiratory: PRESENT: as per HPI, dyspnea. ABSENT: cough, hemoptysis, sputum Gastrointestinal: ABSENT: abdominal pain, constipation, diarrhea, hematemesis, hematochezia, nausea, vomiting Musculoskeletal: ABSENT: joint swelling Integumentary: ABSENT: rash, wounds Neurological: ABSENT: abnormal gait, abnormal speech, confusion, dizziness, focal weakness, syncope Psychiatric: ABSENT: anxiety, depression Endocrine: ABSENT: cold intolerance, heat intolerance, polydipsia, polyuria Hematologic/Lymphatic: ABSENT: easy bleeding, easy bruising Physical Exam Vital Signs: Temp Pulse Resp BP Pulse Ox 98.0 F 105 H 18 153/96 H 90 L 02/15/17 12:58 02/15/17 12:58 02/15/17 12:58 02/15/17 12:58 02/15/17 12:58 General appearance: PRESENT: no acute distress, well-developed, well-nourished Head exam: PRESENT: atraumatic, normocephalic Eye exam: PRESENT: conjunctiva pink, EOMI, PERRLA. ABSENT: scleral icterus Ear exam: PRESENT: normal external ear exam Mouth exam: PRESENT: moist, tongue midline Neck exam: ABSENT: carotid bruit, JVD, lymphadenopathy, thyromegaly Respiratory exam: PRESENT: wheezes. ABSENT: rales, rhonchi Cardiovascular exam: PRESENT: RRR. ABSENT: diastolic murmur, rubs, systolic murmur Vascular exam: PRESENT: normal capillary refill GI/Abdominal exam: PRESENT: normal bowel sounds, soft. ABSENT: distended, guarding, mass, organolmegaly, rebound, tenderness Rectal exam: PRESENT: deferred Extremities exam: ABSENT: calf tenderness, clubbing, pedal edema Neurological exam: PRESENT: alert, awake, oriented to person, oriented to place , oriented to time, oriented to situation, CN II-XII grossly intact. ABSENT: motor sensory deficit Psychiatric exam: PRESENT: appropriate affect Skin exam: PRESENT: dry, intact, warm. ABSENT: cyanosis, rash Results Impressions: Chest/Abdomen CTA 02/15/17 15:39 IMPRESSION: No CT angio evidence of acute pulmonary emboli or thoracic aortic dissection. Obstructive lung disease with very mild increased interstitial markings at both upper lobes, could indicate mild pulmonary edema. Assessment & Plan - Diagnosis (1) COPD exacerbation Is this a current diagnosis for this admission?: Yes Plan: The patient started smoking again when she went home and is now back with an acute COPD exacerbation. She has been given Solu-Medrol and we will try to arrange for home oxygen and hopefully discharge home tomorrow if we can do that. - Time Time Spent: 50 to 70 Minutes - Plan Summary Plan Summary: Patient is admitted as an observation.
[2017-02-15] MEDS: LUBIPROSTONE 24 MCG CAPSULE PO SCH (18:08)
[2017-02-15] MEDS: MONTELUKAST SODIUM 10 MG TABLET PO SCH (18:09)
[2017-02-15] MEDS ORDERED: NICOTINE 21 MG/24 HR PATCH.TD24 TD ONE (21:00)
[2017-02-15] MEDS: IPRATROPIUM/ALBUTEROL 0.5-2.5 MG/3 ML AMPUL NEB PRN (21:20)
[2017-02-15] MEDS: BUPROPION HCL 100 MG TABLET PO SCH (21:57)
[2017-02-15] MEDS: PREGABALIN 75 MG CAPSULE PO SCH (21:57)
[2017-02-15] MEDS: FLUTICASONE/SALMETEROL DISKUS 250-50 MCG/DOSE IH SCH (21:57)
[2017-02-15] MEDS: OXYCODONE HCL IR 5 MG TABLET PO PRN (21:59)
[2017-02-16] MEDS: OXYCODONE HCL IR 5 MG TABLET PO PRN ×2 (05:40→21:40)
[2017-02-16] MEDS: PREGABALIN 75 MG CAPSULE PO SCH ×3 (05:40→21:35)
[2017-02-16] MEDS: BUPROPION HCL 100 MG TABLET PO SCH ×3 (05:40→21:34)
[2017-02-16] MEDS: LUBIPROSTONE 24 MCG CAPSULE PO SCH ×2 (08:38→17:16)
[2017-02-16] MEDS: TIOTROPIUM BROMIDE DPI 5 CAP/KIT (18 MCG/CAP) IH SCH (09:42)
[2017-02-16] MEDS: FLUTICASONE/SALMETEROL DISKUS 250-50 MCG/DOSE IH SCH ×2 (09:42→21:34)
[2017-02-16] MEDS: NICOTINE 21 MG/24 HR PATCH.TD24 TD SCH (09:47)
[2017-02-16] MEDS: PREDNISONE 20 MG TABLET PO SCH (09:48)
[2017-02-16] MEDS: DIAZEPAM 5 MG TABLET PO SCH (09:49)
[2017-02-16] MEDS: LEVOFLOXACIN 750 MG TABLET PO SCH (09:49)
[2017-02-16] MEDS: FLUOXETINE HCL 20 MG CAPSULE PO SCH (09:49)
[2017-02-16] MEDS ORDERED: PREDNISONE 10 MG TABLET PO SCH ×2 (10:00)
[2017-02-16] MEDS ORDERED: ONDANSETRON 4 MG TAB.RAPDIS PO PRN (12:30)
--- NOTE | 2017-02-16 15:41 | PDOC DISCHARGE SUMMARY ---
General - Admit/Disc Date/PCP Admission Date/Primary Care Provider: 02/15/17 16:33 RONEN REMY Discharge Date: 02/16/17 - Discharge Diagnosis (1) COPD exacerbation Is this a current diagnosis for this admission?: Yes Summary: Patient has been instructed to stop smoking. - Additional Information Resuscitation Status: Full Code Discharge Diet: Cardiac Discharge Activity: Activity As Tolerated Home Medications: Albuterol Sulfate [Albuterol Sulfate 2.5mg/3 mL] 3 ml NEB Q4HP PRN 02/15/17 Alendronate Sodium [Fosamax 70 mg Tablet] 70 mg PO BIDBS 02/15/17 Bupropion HCl [Bupropion HCl Sr] 150 mg PO Q12 02/15/17 Diazepam [Valium] 10 mg PO DAILY 02/15/17 Fluoxetine HCl [Prozac 20 mg Capsule] 20 mg PO DAILY 02/15/17 Fluticasone/Salmeterol [Advair 250-50 Diskus 14 Dose/Diskus] 1 puff IH Q12 02/15 Levofloxacin [Levaquin 750 mg Tablet] 750 mg PO DAILY 02/15/17 Lubiprostone [Amitiza 24 Mcg Capsule] 24 mcg PO BIDBS 02/15/17 Montelukast Sodium [Singulair 10 mg Tablet] 10 mg PO QPM 02/15/17 Oxycodone HCl 15 mg PO Q6HP PRN 02/15/17 Prednisone [Deltasone 10 mg Tablet] 10 mg PO DAILY 02/15/17 Pregabalin [Lyrica] 150 mg PO Q8 02/15/17 Tiotropium [place] [Spiriva Respimat] 2 puff IH DAILY 02/15/17 Nicotine [Nicoderm 21 mg/24 Hr Transderm Patch] 1 each TD DAILY patch.[id number] History of Present Illness History of Present Illness: GERRI TAYLOR is a 61 year old female who was discharged by me from the hospital yesterday after treatment for an acute COPD exacerbation. When the patient left the hospital she was feeling fine. She went home and then smoked a half pack of cigarettes and began to have cough and wheezing and presented back to the emergency room. She was found to have some hypoxia with oxygen saturations around 88%. Patient denies any chest pain. She denies any type of cough. Denies any fevers or chills or chest pain. Patient admitted until home oxygen can be arranged and is restarted on Solu-Medrol. Hospital Course Hospital Course: 61-year-old female who was discharged home after COPD exacerbation. After she went home she said she was feeling great and started smoking again. She smoked a half pack of cigarettes and came back in with wheezing. She was given Solu- Medrol overnight and had quick improvement in her respiratory status. The patient also is hypoxic and is sent home on 2 L nasal cannula oxygen. The patient also is strongly encouraged to quit smoking. Physical Exam Vital Signs: Temp Pulse Resp BP Pulse Ox 97.8 F 77 16 104/50 L 94 02/16/17 15:21 02/16/17 15:37 02/16/17 15:37 02/16/17 15:21 02/16/17 15:37 Intake & Output 02/15/17 02/16/17 02/17/17 06:59 06:59 06:59 Intake Total 360 Balance 360 Weight 59 kg General appearance: PRESENT: no acute distress Eye exam: PRESENT: conjunctiva pink. ABSENT: scleral icterus Mouth exam: PRESENT: moist, tongue midline Neck exam: ABSENT: JVD Respiratory exam: PRESENT: clear to auscultation sanya. ABSENT: rales, rhonchi, wheezes Cardiovascular exam: PRESENT: RRR. ABSENT: diastolic murmur, rubs, systolic murmur Extremities exam: ABSENT: calf tenderness, clubbing, pedal edema Neurological exam: PRESENT: alert, awake, oriented to person, oriented to place , oriented to time, oriented to situation, CN II-XII grossly intact. ABSENT: motor sensory deficit Psychiatric exam: PRESENT: appropriate affect Skin exam: PRESENT: dry, intact, warm. ABSENT: cyanosis, rash Results Impressions: Chest/Abdomen CTA 02/15/17 15:39 IMPRESSION: No CT angio evidence of acute pulmonary emboli or thoracic aortic dissection. Obstructive lung disease with very mild increased interstitial markings at both upper lobes, could indicate mild pulmonary edema. Qualifiers PATEINT BEING DISCHARGED WITH ANY OF THE FOLLOWING DIAGNOSIS?: No Plan Discharge Plan: Patient is discharged home in stable condition. Will follow up with primary care in 2 weeks. Time Spent: Less than 30 Minutes
[2017-02-16] MEDS: MONTELUKAST SODIUM 10 MG TABLET PO SCH (17:16)
[2017-02-17] MEDS: BUPROPION HCL 100 MG TABLET PO SCH (05:39)
[2017-02-17] MEDS: PREGABALIN 75 MG CAPSULE PO SCH (05:39)
[2017-02-17 07:47] VITALS: BP 106/69
[2017-02-17] MEDS: LUBIPROSTONE 24 MCG CAPSULE PO SCH (08:00)
[2017-02-17] MEDS: OXYCODONE HCL IR 5 MG TABLET PO PRN (08:36)
[2017-02-17] MEDS: IPRATROPIUM/ALBUTEROL 0.5-2.5 MG/3 ML AMPUL NEB PRN (08:51)
[2017-02-17] MEDS: FLUTICASONE/SALMETEROL DISKUS 250-50 MCG/DOSE IH SCH (09:29)
[2017-02-17] MEDS: FLUOXETINE HCL 20 MG CAPSULE PO SCH (09:30)
[2017-02-17] MEDS: TIOTROPIUM BROMIDE DPI 5 CAP/KIT (18 MCG/CAP) IH SCH (09:30)
[2017-02-17] MEDS: NICOTINE 21 MG/24 HR PATCH.TD24 TD SCH (09:30)
[2017-02-17] MEDS: DIAZEPAM 5 MG TABLET PO SCH (09:31)
[2017-02-17] MEDS: LEVOFLOXACIN 750 MG TABLET PO SCH (09:31)
[2017-02-17] MEDS: PREDNISONE 20 MG TABLET PO SCH (09:31)
[2017-02-20] MEDS ORDERED: (PENDING PHARMACY ID) (Alendronate Sodium [Fosamax 70 Mg Tablet] 70 MG) PO SCH (10:00)
== END 2017-02-17 10:18 | disposition home or self-care (01) ==
LOC: ER 12:52 → EH 16:33 → 5 18:53
PROVIDERS: ADMIT Internal Medicine; ATTEND Internal Medicine
PROC: HZ31ZZZ Individual Counseling for Substance Abuse Treatment, Behavioral (ICD-10-PCS; principal; 2017-02-15)
PROC: 3E0F7GC Introduction of Other Therapeutic Substance into Respiratory Tract, Via Natural or Artificial Opening (ICD-10-PCS; 2017-02-15)
DX: J44.1 Chronic obstructive pulmonary disease with (acute) exacerbation (principal); R09.02 Hypoxemia; F17.210 Nicotine dependence, cigarettes, uncomplicated; Z79.899 Other long term (current) drug therapy
CPT/HCPCS: 94640 ×3; 99291; 96374; 36415; 85025; 80053; 71275; 99406; G0378 ×4; A9270 ×23; J3490 ×4; J2930; J7512; J7620

== ENCOUNTER 2017-07-16 12:38 | Emergency (ER) | payer MEDICARE, MEDICAID ==
[2017-07-16] MEDS ORDERED: FAMOTIDINE 20 MG TABLET PO ONE (14:14)
[2017-07-16] MEDS ORDERED: METHYLPREDNISOLONE INJ 125 MG/2 ML SDV IM ONE (14:15)
--- NOTE | 2017-07-16 14:21 | ER Document Report ---
ED Skin Rash/Insect Bite/Abscs - General Chief Complaint: Rash Stated Complaint: RASH Time Seen by Provider: 07/16/17 12:53 Mode of Arrival: Ambulatory Information source: Patient Notes: 61-year-old patient presented ED for rash to the arms and hands. She states she started with a rash about 3 days ago and is progressively gotten worse. She states she is trying to stop smoking history of smoking 3 packs a day and used a nicotine patch and lozenges at the same time. She states this initially started with the rash she stopped the NicoDerm patch and lozenges. But states that the rashes but continued to spread. Patient is alert and oriented pupils equal and react to light, respirations regular unlabored. Patient is able to walk with a even steady gait. TRAVEL OUTSIDE OF THE [place] IN LAST 30 DAYS: No - HPI Patient complains to provider of: Skin rash/lesion Onset: Other Onset/Duration: Gradual, Persistent, Worse - 3 days Quality of pain: Burning Severity: Moderate Pain Level: 3 Skin Character: Patchy, Rash, Urticarial Quality of rash: Itchy, Painful Identify cause: No Exacerbated by: Denies Relieved by: Denies Similar symptoms previously: No Recently seen / treated by doctor: No - Related Data Allergies/Adverse Reactions: cephalexin monohydrate [From Keflex] Adverse Reaction (Mild, Verified 07/16/17 12:39) alivia erythromycin base [Erythromycin Base] Adverse Reaction (Mild, Verified 07/16/17 12:39) alivia Past Medical History - General Information source: Patient - Social History Smoking Status: Current Every Day Smoker Cigarette use (# per day): Yes - 3 packs per day Chew tobacco use (# tins/day): No Smoking Education Provided: Yes - 4 minutes Frequency of alcohol use: None Drug Abuse: None Family History: Malignancy Patient has suicidal ideation: No Patient has homicidal ideation: No - Past Medical History Cardiac Medical History: Reports: None Pulmonary Medical History: Reports: Hx Asthma, Hx Bronchitis - URI, Hx COPD - inhalers, home O2 at night EENT Medical History: Reports: None Neurological Medical History: Reports: None Endocrine Medical History: Reports: None Renal/ Medical History: Reports: None Malignancy Medical History: Reports: None GI Medical History: Reports: None Musculoskeltal Medical History: Reports Hx Arthritis, Reports Hx Musculoskeletal Deformity Skin Medical History: Reports None Psychiatric Medical History: Reports: Hx Anxiety, Hx Bipolar Disorder, Hx Depression Traumatic Medical History: Reports: None Infectious Medical History: Reports: None Past Surgical History: Reports: Hx Hysterectomy, Hx Orthopedic Surgery - back surgery - lumbar fusion, carpal tunnel surgery, Hx Urinary Tract Surgery - bladder tuck, Other - Rectocele, bladder tack - Immunizations Hx Diphtheria, Pertussis, Tetanus Vaccination: Yes Hx Pneumococcal Vaccination: 02/27/13 Review of Systems - Review of Systems Constitutional: No symptoms reported EENT: No symptoms reported Cardiovascular: No symptoms reported Respiratory: No symptoms reported Gastrointestinal: No symptoms reported Genitourinary: No symptoms reported Female Genitourinary: No symptoms reported Musculoskeletal: No symptoms reported Skin: Rash Hematologic/Lymphatic: No symptoms reported Neurological/Psychological: No symptoms reported -: Yes All other systems reviewed and negative Physical Exam - Vital signs Vitals: Temp Pulse Resp BP Pulse Ox 98.5 F 86 16 135/75 H 92 07/16/17 12:44 07/16/17 12:44 07/16/17 12:44 07/16/17 12:44 07/16/17 12:44 Interpretation: Normal - General General appearance: Appears well, Alert - HEENT Head: Normocephalic, Atraumatic Eyes: Normal Pupils: PERRL - Respiratory Respiratory status: No respiratory distress Chest status: Nontender Breath sounds: Normal Chest palpation: Normal - Cardiovascular Rhythm: Regular Heart sounds: Normal auscultation Murmur: No - Abdominal Inspection: Normal Distension: No distension Bowel sounds: Normal Tenderness: Nontender Organomegaly: No organomegaly - Back Back: Normal, Nontender - Extremities General upper extremity: Normal inspection, Nontender, Normal color, Normal ROM , Normal temperature General lower extremity: Normal inspection, Nontender, Normal color, Normal ROM , Normal temperature, Normal weight bearing. No: Comfort's sign - Neurological Neuro grossly intact: Yes Cognition: Normal Orientation: AAOx4 Jaya Coma Scale Eye Opening: Spontaneous Jaya Coma Scale Verbal: Oriented Jaya Coma Scale Motor: Obeys Commands Jaya Coma Scale Total: 15 Speech: Normal Motor strength normal: LUE, RUE, LLE, RLE Sensory: Normal - Psychological Associated symptoms: Normal affect, Normal mood - Skin Skin Temperature: Warm Skin Moisture: Dry Skin Color: Normal Skin irregularity: Rash - Bilateral arms and hands Character of irregularity: Urticarial - Bilateral arms, Other - Between the fingers on both hands red scabby like it is been scratched Irregularity with: Tenderness Course - Re-evaluation Re-evalutation: 07/16/17 22:[address] Dimas on patient before patient was discharged. He agreed that some of the areas looked like they could be eczema others look like they were allergic reaction and the rash between her fingers looked like it could be scabies. He recommended treating patient for scabies and for allergic reaction. He recommended patient follow-up with her primary doctor and an sales representative printing supplies. She verbalized understanding of treatment plan and agreement with treatment plan. - Vital Signs Vital signs: Temp Pulse Resp BP Pulse Ox 98.7 F 77 18 131/75 H 97 07/16/17 14:39 07/16/17 14:39 07/16/17 14:39 07/16/17 14:39 07/16/17 14:39 Discharge - Discharge Clinical Impression: Rash and nonspecific skin eruption Condition: Stable Disposition: HOME, SELF-CARE Additional Instructions: Atopic Dematitis (Eczema) You have atopic dermatitis, commonly called eczema. This is a chronic allergic skin condition. It often occurs in families with asthma and hay fever. The skin develops patches of redness, itching and scaling. Eczema often affects the back of the neck, back of the legs, and front of the arms. In children it affects the back of the knees, front of the elbows, and the cheeks. Itching is the main symptom. Eczema can be triggered by dryness, heat, sweating, and detergents or soap. Scratching makes the rash worse. Food or skin allergy can cause eczema. Emotional stress may also be a factor. Symptoms may get better or worse spontaneously. Generally, the treatment consists of: (1) avoid hot-water baths, (2) avoid using soap on your skin, (3) apply a cortisone cream as needed, and (4) use antihistamines for itching. For severe episodes, oral cortisone medication may be required. Call the doctor if you get worse despite treatment, or if signs of infection occur -- such as spreading redness, red streaks, swollen glands, swelling, or fever. Scabies Your exam suggests the presence of scabies, which are microscopic parasites of the skin. These mites stefan through the skin, causing severe itching. The mite can be spread to other persons by skin contact. All clothing, towels, and bedding should be washed in very hot water, set aside for a week, then washed again. You should apply scabies-killing lotion from the neck down, then wash it off after 12 hours. You may need medication for itching, as the itch persists for many days after the mites have been killed. All family members and close personal contacts should be examined. Repeat treatment may be necessary if the infestation is not eliminated with a single treatment. Call the doctor if you develop increasing swelling and redness, red streaks , tender lumps, fever, or drainage from a skin sore. ACUTE ALLERGIC REACTION: Your symptoms are due to an allergic reaction. Allergy can cause hives, swelling of the hands, feet, and face, hoarseness, and difficulty swallowing or breathing. It may be due to exposure to medication, animal dander, foods, infection, or insect bites. Medication is a common cause, even when prior use of this same medication caused no problems. Acute treatment may include adrenalin and antihistamines. Usually, the specific allergic agent can't be identified unless repeated episodes occur. Home treatment includes the following: (1) Stop any suspicious medications. This will be discussed with you. (2) Oral antihistamines for the next four to five days. Example, diphenhydramine (Benadryl) every four hours. (3) You may also use cimetidine (Tagamet), ranitidine (Zantac), or famotidine ( Pepcid) every four hours if diphenhydramine is not controlling itching and hives. (4) Avoid aspirin until the hives completely disappear. (5) Avoid hot baths or showers until the hives are completely gone. Call the doctor if faintness, difficulty swallowing, tightness in the chest , or wheezing occurs. STEROID MEDICATION INJECTION: You have been given an injection of medicine of the cortisone/steroid class. This medication is used to control inflammation or allergy. It is often continued as a pill for a short period of time, until the acute process subsides. There are usually no side effects from short-term use of cortisone-like medications. Some persons feel an increased sense of well-being and are not sleepy at bedtime. Long-term use of cortisone medications is best avoided, unless required for a severe condition. If your condition does not remit, or relapses after the course of corticosteroid medication, you should consult your physician. STEROID MEDICATION: You have been given a medicine of the cortisone/steroid class. This medication is used to control inflammation or allergy. It is usually only given for a short period of time, until the acute process subsides. There are usually no side effects from short-term use of cortisone-like medications. Some persons feel an increased sense of well-being and are not sleepy at bedtime. Long-term use of cortisone medications is best avoided, unless required for a severe condition. If your condition does not remit, or relapses after the course of corticosteroid medication, you should consult your physician. ACID-SUPPRESSING MEDICATION: You have a prescription for medicine which reduces the stomach's secretion of acid. Examples include Zantac, Tagament, and Pepcid. These drugs are often used to allow healing of ulcers or esophagitis. They may be needed to prevent recurrence of ulcers in some patients, or to prevent damage from acid reflux in the esophagus. Take all medication as prescribed, even after the pain is gone. Regular antacids may be added as needed if you have symptoms while taking this medicine. These medications sometimes are prescribed for allergic reactions because they have anti-histaminic effects and relieve the rash and itching of the reaction. There are usually no side effects from this medication. But, in rare cases and particularly in the elderly, serious problems can occur. Contact your doctor if there is fever, rash, hallucinations, confusion, or unusual bruising. Contact your doctor at once if you develop lightheadedness, black or bloody stool, or bloody vomitus. USE OF DIPHENHYDRAMINE: The use of diphenhydramine (Benadryl) has been recommended to control allergic symptoms. The 25 mg strength is available over- the-counter, as well as the elixir. This antihistamine is used for many symptoms. It's useful for itching, watering eyes and nose, allergic swelling, hives, and insect stings. The medication can be repeated four times daily. Age Elixir (12.5 mg/tsp) 25 mg pill 2-3 yr 1/2 tsp 4-8 yr 1 tsp 9-14 yr 2 tsp one tab adult 1-2 tabs Antihistamines may cause drowsiness, especially with the first dose. Do not operate machinery or drive while under the effects of the medication. Do not combine the medication with alcohol, or with any other medication without talking to your doctor. FOLLOW-UP CARE: If you have been referred to a physician for follow-up care, call the physician s office for an appointment as you were instructed or within the next two days. If you experience worsening or a significant change in your symptoms, notify the physician immediately or return to the Emergency Department at any time for re-evaluation. Prescriptions: Permethrin [Elimite] 60 gm TP ONCE PRN #60 cream..g. PRN Reason: Prednisone [Deltasone 20 mg Tablet] 3 tab PO DAILY 5 Days tablet Forms: Elevated Blood Pressure, Smoking Cessation Education Referrals: FABRIZIO RIBEIRO PA [Primary Care Provider] - Follow up tomorrow
[2017-07-16 14:40] VITALS: BP 131/75
== END 2017-07-16 14:39 | disposition home or self-care (01) ==
LOC: ER 12:38
DX: R21 Rash and other nonspecific skin eruption (principal); F17.210 Nicotine dependence, cigarettes, uncomplicated; J44.9 Chronic obstructive pulmonary disease, unspecified
CPT/HCPCS: 99406; 99282; 96372; A9270; J2930

== ENCOUNTER → 2017-08-02 | Outpatient (CLI) | payer MEDICARE, MEDICAID ==
--- NOTE | 2017-08-02 11:25 | RADIOLOGY REPORT (SQ) ---
EXAM DESCRIPTION: CT CHEST WITHOUT COMPLETED DATE/TIME: 08/02/2017 10:56 am REASON FOR STUDY: OTHER SPECIFIED INTERSTITIAL PULMONARY DISEASES J84.89 OTHER SPECIFIED INTERSTITI AL PULMONARY DISEASES COMPARISON: 02/15/2017 and 10/29/2013. TECHNIQUE: CT scan performed of the chest without intravenous contrast. Images reviewed with lung, soft tissue and bone windows. Reconstructed coronal and sagittal MPR images reviewed. All images st ored on PACS. All CT scanners at this facility use dose modulation, iterative reconstruction, and/or weight based d osing when appropriate to reduce radiation dose to as low as reasonably achievable (ALARA). [facility]: Dose Right [facility]: CareDose [facility]: Dose Right [facility]: Teradose 4D [facility]: [employer] RADIATION DOSE: CT Rad equipment meets quality standard of care and radiation dose reduction techniq ues were employed. CTDIvol: 5.1 mGy. DLP: 192 mGy-cm. mGy. LIMITATIONS: No technical limitations. FINDINGS: LUNGS AND PLEURA: Mild emphysematous changes. Small focal scar in the left upper lobe. 2 -3 mm subpleural nodules in the left lung (axial images 19 and 42) are unchanged since 2013. No mass es, infiltrates, pneumothorax. No pleural effusions, calcifications. HILAR AND MEDIASTINAL STRUCTURES: No identified masses or abnormal nodes. No obvious aneurysm. HEART AND VASCULAR STRUCTURES: No aneurysm. No pericardial effusion. UPPER ABDOMEN: No significant findings. Limited exam. THYROID AND OTHER SOFT TISSUES: No masses. No adenopathy. BONES: No acute finding. Old compression deformity of the superior endplate of L1 with hardware in t he lumbar spine. HARDWARE: None in the chest. OTHER: No other significant findings. IMPRESSION: MILD EMPHYSEMATOUS CHANGES. SMALL SUBCENTIMETER PULMONARY NODULES ARE UNCHANGED SINCE . OTHERWISE NO ACUTE OR SIGNIFICANT FINDINGS. TECHNICAL DOCUMENTATION: JOB ID: [id number] Quality ID # [id number]: Final reports with documentation of one or more dose reduction techniques (e.g., Au tomated exposure control, adjustment of the mA and/or kV according to patient size, use of iterative reconstruction technique) 2010 [employer]- All Rights Reserved Reading location - IP/workstation name: [facility]
== END ==
LOC: RAD 10:23
PROVIDERS: ATTEND Internal Medicine Critical Care Medicine
DX: J84.89 Other specified interstitial pulmonary diseases (principal)
CPT/HCPCS: 71250

== ENCOUNTER → 2017-09-19 | Outpatient (CLI) | payer MEDICARE, MEDICAID ==
--- NOTE | 2017-09-19 12:12 | WOMENS IMAGING REPORT ---
EXAM DESCRIPTION: 3D SCREENING MAMMO BILAT COMPLETED DATE/TIME: 09/19/2017 11:10 am REASON FOR STUDY: BILATERAL SCREENING MAMMO 3D/Z12.31 Z12.31 ENCNTR SCREEN MAMMOGRAM FOR MALIGNANT NEOPLASM OF EPI COMPARISON: [id number] TECHNIQUE: Standard craniocaudal and mediolateral oblique views of each breast recorded using digita l acquisition and breast tomosynthesis. LIMITATIONS: None. FINDINGS: No masses, calcifications or architectural distortion. No areas of suspicion. Read with the assistance of CAD. .[facility] - R2 Cenova Version 1.3 .[facility] Imaging - R2 Cenova Version 1.3 .[facility] Imaging - R2 Cenova Version 2.4 .[facility] - R2 Cenova Version 2.4 .[facility] - R2 Instructor Of Education Version 9.2 IMPRESSION: NORMAL MAMMOGRAM. BIRADS 1. BREAST DENSITY: b. There are scattered areas of fibroglandular density. BIRAD: 1 NEGATIVE RECOMMENDATION: ROUTINE SCREENING COMMENT: The patient has been notified of the results by letter per SA requirements. Additional no tification policies are in place for contacting patient with suspicious or incomplete findings. Quality ID #[id number]: The [employer] recommends an annual screening mammogram for women aged 40 years or over. This facility utilizes a reminder system to ensure that all patients receive reminder letters, and/or direct phone calls for appointments. This includes reminders for routine scr eening mammograms, diagnostic mammograms, or other Breast Imaging Interventions when appropriate. Th is patient will be placed in the appropriate reminder system. The [employer] (ACR) has developed recommendations for screening MRI of the breast s in certain patient populations, to be used in conjunction with mammography. Breast MRI surveillanc e may be appropriate for women with more than 20% lifetime risk of developing breast cancer as deter mined by genetic testing, significant family history of the disease, or history of mantle radiation f or Hodgkins Disease. ACR Practice Guidelines 2008. DBT Technology DBT is a type of tomographic mammography. With conventional mammography, overlapping breast tissue ma y make lesions difficult to detect, even with good compression. DBT uses an x-ray tube that rotates a round the breast, taking images at different angles. These images are then combined to create thin sl ices of the breast that the radiologist can view as a 3D reconstruction. The FixMeStick unit can perform full-field digital mammograms (2D imaging); or DBT (3D imaging); or both, in a combination mode that quickly performs both the mammogram and the tomosynthesis scan while the breast is still compressed. PQRS 6045F: Fluoroscopic imaging is not utilized for breast tomosynthesis. TECHNICAL DOCUMENTATION: FINDING NUMBER: (1) ASSESSMENT: (1) JOB ID: [id number] [employer]- All Rights Reserved Reading location - IP/workstation name: [facility]
== END ==
LOC: WI 10:26
PROVIDERS: ATTEND Internal Medicine
DX: Z12.31 Encounter for screening mammogram for malignant neoplasm of breast (principal)
CPT/HCPCS: 77063; 77067

== ENCOUNTER → 2017-12-22 | Outpatient (CLI) | payer MEDICARE, MEDICAID ==
--- NOTE | 2017-12-22 10:56 | WOMENS IMAGING REPORT ---
EXAM DESCRIPTION: BONE DENSITY HIP/SPINE COMPLETED DATE/TIME: 12/22/2017 10:33 am REASON FOR STUDY: BONE DENSITY TEST M81.0 M81.0 AGE-RELATED OSTEOPOROSIS W/O CURRENT PATHOLOGICAL F RAC M54.16 RADICULOPATHY, LUMBAR REGION COMPARISON: None. TECHNIQUE: Dual-Energy X-ray Absorptiometry (DEXA) of the hip and forearm. LIMITATIONS: None. FINDINGS: HIP: The bone mineral density (BMD) measured in the left hip correlates with a T-score of -2.2, which is o steopenia as defined by the World Health Organization. FOREARM: The bone mineral density (BMD) measured in the left forearm correlates with a T-score of -2.6 which i s osteoporosis as defined by the World Health Organization. IMPRESSION: 1. HIP: OSTEOPENIA. 2. FOREARM: OSTEOPOROSIS. COMMENT: The World Health Organization defines low BMD as follows: T-score: Normal: Greater than -1.0 Osteopenia: Between -1.0 and -2.5 Osteoporosis: Less than -2.5 without fractures Established osteoporosis: Less than -2.5 with fractures In general, you may wish to consider: Diagnosis Treatment Follow-up DEXA Normal BMD Prevention 2-3 years Osteopenia Prevention/Therapy 1-2 years Osteoporosis Therapy Yearly TECHNICAL DOCUMENTATION: JOB ID: [id number] [employer]- All Rights Reserved Reading location - IP/workstation name: [email or web address]
--- NOTE | 2017-12-22 13:16 | RADIOLOGY REPORT (SQ) ---
EXAM DESCRIPTION: L SPINE W/FLEX/EXT COMPLETED DATE/TIME: 12/22/2017 1:00 pm REASON FOR STUDY: M96.1 POSTLAMINECTOMY SYNDROME, NOT ELSEWHERE CLASSIFIED M81.0 AGE-RELATED OSTEOP OROSIS W/O CURRENT PATHOLOGICAL FRAC M54.16 RADICULOPATHY, LUMBAR REGION M96.1 POSTLAMINECTOMY SYND GREG, NOT ELSEWHERE CLASSIFIED COMPARISON: None. NUMBER OF VIEWS: Seven views. TECHNIQUE: AP, lateral, obliques, flexion, extension, and sacral radiographic images acquired. LIMITATIONS: None. FINDINGS: MINERALIZATION: Normal. SEGMENTATION: Normal. No transitional anatomy. ALIGNMENT: There is straightening of the normal lumbar lordosis. FLEXION/EXTENSION: No instability. VERTEBRAE: There is a chronic compression deformity of L1. There is approximately 20% loss of height . DISCS: Multilevel disc space narrowing. POSTERIOR ELEMENTS: Pedicles and facets are intact. No pars defect or posterior arch defects. HARDWARE: There are postsurgical changes from L2 through L5. PARASPINAL SOFT TISSUES: Normal. PELVIS: Intact as visualized. No fractures or worrisome bone lesions. SI joints intact. OTHER: No other significant finding. IMPRESSION: Postsurgical changes. Multilevel spondylosis. Chronic L1 compression deformity with approximately 20% loss of height. No instability. TECHNICAL DOCUMENTATION: JOB ID: [id number] [employer]- All Rights Reserved Reading location - IP/workstation name: [email or web address]
--- NOTE | 2017-12-22 14:24 | RADIOLOGY REPORT (SQ) ---
EXAM DESCRIPTION: CT LUMBAR SPINE WITHOUT COMPLETED DATE/TIME: 12/22/2017 1:12 pm REASON FOR STUDY: M54.16 RADICULOPATHY, LUMBAR REGION M81.0 AGE-RELATED OSTEOPOROSIS W/O CURRENT PA THOLOGICAL FRAC M54.16 RADICULOPATHY, LUMBAR REGION M96.1 POSTLAMINECTOMY SYNDROME, NOT ELSEWHERE C LASSIFIED COMPARISON: Plain films of the lumbar spine dated 12/22/2017 TECHNIQUE: Axial images acquired through the lumbar spine without intravenous contrast. Images revi ewed with lung, soft tissue and bone windows. Reconstructed coronal and sagittal MPR images reviewed . All images stored on PACS. All CT scanners at this facility use dose modulation, iterative reconstruction, and/or weight based d osing when appropriate to reduce radiation dose to as low as reasonably achievable (ALARA). [facility]: Dose Right [facility]: CareDose [facility]: Dose Right [facility]: Teradose 4D [facility]: [employer] RADIATION DOSE: CT Rad equipment meets quality standard of care and radiation dose reduction techniq ues were employed. CTDIvol: 10.5 mGy. DLP: 312 mGy-cm. mGy. LIMITATIONS: Study is limited somewhat due to artifact related to orthopedic hardware. FINDINGS: SEGMENTATION: Normal. No transitional anatomy. ALIGNMENT: Again there is some loss of the normal lumbar lordosis. There is minimal retrolisthesis o f L1 relation to L2. VERTEBRAL BODIES: There is compression of the superior endplate of the L1 vertebra which was describe d as a chronic compression on the recent plain films. DISCS: Disc spacers are identified at the L2-L3, L3-L4 common L4-L5 disc space levels P PEDICLES, TRANSVERSE PROCESSES: Post laminectomy changes are identified at the L3 level with partial post laminectomy changes at the L2 level. FACETS, POSTERIOR ELEMENTS: No fractures. Post laminectomy changes extending from the L2 to the L4 l evel. Degenerative changes are identified in the facet articulations at multiple levels. HARDWARE: Bilateral posterior orthopedic rods transfixed by pedicular screws are identified extending from the L2 to the L4 level. Bilateral pedicular screws are identified at the L5 level. VISUALIZED RIBS: No fractures. SOFT TISSUES: No significant or acute finding in adjacent soft tissues. OTHER: No other significant finding. IMPRESSION: Degenerative and postsurgical changes as noted above TECHNICAL DOCUMENTATION: JOB ID: [id number] Quality ID # [id number]: Final reports with documentation of one or more dose reduction techniques (e.g., Au tomated exposure control, adjustment of the mA and/or kV according to patient size, use of iterative reconstruction technique) 2010 [employer]- All Rights Reserved Reading location - IP/workstation name: [email or web address]
== END ==
LOC: WI 10:07
PROVIDERS: ATTEND Internal Medicine
DX: M54.16 Radiculopathy, lumbar region (principal); M96.1 Postlaminectomy syndrome, not elsewhere classified; M81.0 Age-related osteoporosis without current pathological fracture
CPT/HCPCS: 72114; 72131; 77080

== ENCOUNTER → 2018-05-23 | Outpatient (CLI) | payer MEDICARE ==
--- NOTE | 2018-05-23 12:21 | RADIOLOGY REPORT (SQ) ---
EXAM DESCRIPTION: L SPINE FLEX/EXT ONLY COMPLETED DATE/TIME: 05/23/2018 11:09 am REASON FOR STUDY: LUMBAR RADICULOPATHY COMPARISON: None. NUMBER OF VIEWS: Three views TECHNIQUE: Lateral views were obtained in neutral, flexion, and extension. LIMITATIONS: None. FINDINGS: MINERALIZATION: Normal. SEGMENTATION: Normal. No transitional anatomy. ALIGNMENT: Normal. FLEXION/EXTENSION: No instability. VERTEBRAE: Maintained height. No fracture or worrisome bone lesion. DISCS: Disc implants are present at L2-3, L3-4, and L4-5. POSTERIOR ELEMENTS: Pedicles and facets are intact. No pars defect or posterior arch defects. HARDWARE: Posterior rods from L3-L5. There are screws through the pedicles at L2. OTHER: No other significant finding. IMPRESSION: Surgical changes. No instability between flexion and extension. TECHNICAL DOCUMENTATION: JOB ID: [id number] [employer]- All Rights Reserved Reading location - IP/workstation name: [email or web address]
== END ==
LOC: RAD 10:47
PROVIDERS: ATTEND Specialist
DX: M54.16 Radiculopathy, lumbar region (principal)
CPT/HCPCS: 72120

== ENCOUNTER → 2018-06-22 | Outpatient (CLI) | payer MEDICARE ==
--- NOTE | 2018-06-22 10:40 | RADIOLOGY REPORT (SQ) ---
EXAM DESCRIPTION: L SPINE FLEX/EXT ONLY COMPLETED DATE/TIME: 06/22/2018 10:29 am REASON FOR STUDY: LUMBAR RADICULOPATHY (M54.16) M54.16 RADICULOPATHY, LUMBAR REGION COMPARISON: 05/23/2018 TECHNIQUE: Lateral flexion and extension radiographs of the spine. NUMBER OF VIEWS: Two views. LIMITATIONS: None. FINDINGS: Normal alignment, maintained throughout flexion and extension. No abnormal motion. OTHER: Postsurgical changes are again noted from L2 through L5. Chronic compression deformity at L1. IMPRESSION: NO RADIOGRAPHIC EVIDENCE OF ABNORMAL MOTION. TECHNICAL DOCUMENTATION: JOB ID: [id number] [employer]- All Rights Reserved Reading location - IP/workstation name: [email or web address]
== END ==
LOC: RAD 10:06
PROVIDERS: ATTEND Specialist
DX: M54.16 Radiculopathy, lumbar region (principal)
CPT/HCPCS: 72120

== ENCOUNTER → 2018-07-25 | Outpatient (CLI) | payer MEDICARE ==
--- NOTE | 2018-07-25 09:41 | RADIOLOGY REPORT (SQ) ---
EXAM DESCRIPTION: L SPINE 2 VIEWS COMPLETED DATE/TIME: 07/25/2018 9:26 am REASON FOR STUDY: LUMBAR RADIULOPATHY COMPARISON: 07/25/2018, 06/22/2018 NUMBER OF VIEWS: Two views. TECHNIQUE: AP and lateral radiographic images acquired of the lumbar spine. LIMITATIONS: None. FINDINGS: MINERALIZATION: Decreased. SEGMENTATION: 5 [id number] lumbar vertebral bodies. ALIGNMENT: Focal dextroconvex curvature of the lumbar spine centered at L2-3, stable. Straightening of the normal lumbar lordosis. VERTEBRAE: Stable central superior endplate height loss at L1. No additional compression deformities . DISCS: Multilevel disc fusion spanning from L2-L5. Stable additional disc height loss throughout the thoracolumbar junction. POSTERIOR ELEMENTS: Postsurgical changes from posterior fusion. HARDWARE: Posterior fusion hardware at L2 and L3 -L5, stable. Stable interbody spacers at L2-3, L3-4 and L4-5. PARASPINAL SOFT TISSUES: Aortic atherosclerosis. PELVIS: Intact as visualized. No fractures or worrisome bone lesions. SI joints intact. OTHER: No other significant finding. IMPRESSION: 1. Stable postoperative appearance of the lumbar spine without definite acute osseous a bnormality. 2. Stable chronic L1 compression deformity. TECHNICAL DOCUMENTATION: JOB ID: [id number] [employer]- All Rights Reserved Reading location - IP/workstation name: [email or web address]
--- NOTE | 2018-07-25 09:44 | RADIOLOGY REPORT (SQ) ---
EXAM DESCRIPTION: L SPINE FLEX/EXT ONLY COMPLETED DATE/TIME: 07/25/2018 9:26 am REASON FOR STUDY: LUMBAR RADICULAPATHY COMPARISON: 06/22/2018 NUMBER OF VIEWS: Two view. TECHNIQUE: Lateral flexion extension views of the lumbar spine obtained. LIMITATIONS: None. FINDINGS: MINERALIZATION: Decreased. ALIGNMENT: Straightening of the normal lumbar lordosis. FLEXION/EXTENSION: No instability with flexion or extension. VERTEBRAE: Stable chronic L1 compression deformity. No new compression fractures. DISCS: Multilevel fusion from L2-L5. Additional disc space height loss, stable. HARDWARE: L2 and L3 - L5 posterior fusion hardware. Interbody spacers at L2-3, L3-4 and L4-5. IMPRESSION: Stable postoperative appearance of the lumbar spine without evidence of instability with flexion or extension. TECHNICAL DOCUMENTATION: JOB ID: [id number] [employer]- All Rights Reserved Reading location - IP/workstation name: [email or web address]
== END ==
LOC: RAD 09:00
PROVIDERS: ATTEND Specialist
DX: M54.16 Radiculopathy, lumbar region (principal)
CPT/HCPCS: 72100; 72120

== ENCOUNTER → 2018-12-28 | Outpatient (CLI) | payer MEDICARE, OTHER ==
--- NOTE | 2018-12-28 14:13 | RADIOLOGY REPORT (SQ) ---
EXAM DESCRIPTION: T SPINE AP/LAT COMPLETED DATE/TIME: 12/28/2018 1:57 pm REASON FOR STUDY: M54.6 PAIN IN THORACIC SPINE M54.6 PAIN IN THORACIC SPINE M54.5 LOW BACK PAIN COMPARISON: 08/02/2017 NUMBER OF VIEWS: Two views. TECHNIQUE: AP and lateral radiographic images acquired of the thoracic spine. LIMITATIONS: None. FINDINGS: MINERALIZATION: Normal. ALIGNMENT: Normal. No scoliosis. VERTEBRAE: Similar compression deformity at the L1 level. No acute findings in the thoracic spine. . DISCS: No significant loss of height or significant narrowing. No large osteophytes. HARDWARE: None in the spine. MEDIASTINUM AND SOFT TISSUES: Normal heart size and aortic contour. No soft tissue abnormality. VISUALIZED LUNG TITUS: Clear. OTHER: No other significant finding. IMPRESSION: No acute findings in the thoracic spine. . TECHNICAL DOCUMENTATION: JOB ID: [id number] 2010 [employer]- All Rights Reserved Reading location - IP/workstation name: [email or web address]
--- NOTE | 2018-12-28 14:17 | RADIOLOGY REPORT (SQ) ---
EXAM DESCRIPTION: L SPINE WHOLE COMPLETED DATE/TIME: 12/28/2018 1:57 pm REASON FOR STUDY: M54.5 LOW BACK PAIN M54.6 PAIN IN THORACIC SPINE M54.5 LOW BACK PAIN COMPARISON: 07/25/2018 NUMBER OF VIEWS: Five views including obliques. TECHNIQUE: AP, lateral, oblique, and sacral radiographic images acquired of the lumbar spine. LIMITATIONS: None. FINDINGS: MINERALIZATION: Normal. ALIGNMENT: Stable. VERTEBRAE: Similar compression deformity at the L1 level. DISCS: Multilevel disc space narrowing with osteophytes. POSTERIOR ELEMENTS: Posterior decompression from L3-L5. HARDWARE: Posterior fusion hardware from L2 through L5 with interbody disc spacers, stable appearance . . PARASPINAL SOFT TISSUES: Normal. PELVIS: Intact as visualized. No fractures or worrisome bone lesions. SI joints intact. OTHER: No other significant finding. IMPRESSION: Posterior fusion hardware from L2 through L5 with interbody disc spacers, stable appeara nce. Stable exam. TECHNICAL DOCUMENTATION: JOB ID: [id number] [id number] 2010 [employer]- All Rights Reserved Reading location - IP/workstation name: [email or web address]
== END ==
LOC: RAD 12:42
PROVIDERS: ATTEND Pain Medicine Pain Medicine
DX: M54.6 Pain in thoracic spine (principal); M54.5 Low back pain; Z98.1 Arthrodesis status
CPT/HCPCS: 72070; 72110

== ENCOUNTER → 2019-01-30 | Outpatient (CLI) | payer MEDICARE, OTHER ==
--- NOTE | 2019-01-30 13:43 | RADIOLOGY REPORT (SQ) ---
EXAM DESCRIPTION: HIP RIGHT AP/LATERAL COMPLETED DATE/TIME: 01/30/2019 1:28 pm REASON FOR STUDY: M25.551 PAIN IN RIGHT HIP COMPARISON: None. NUMBER OF VIEWS: Two views. TECHNIQUE: AP pelvis and additional frog-leg view of the right hip. LIMITATIONS: None. FINDINGS: MINERALIZATION: Normal. RIGHT HIP: No fracture or dislocation. No worrisome bone lesions. LEFT HIP: No fracture or dislocation. No worrisome bone lesions. PUBIS AND ISCHIUM: No fracture. PELVIS: No fracture. SACRUM: No fracture or dislocation. No worrisome bone lesions. LOWER LUMBAR SPINE: Surgical changes in the lower lumbar spine. SOFT TISSUES: No findings. OTHER: No other significant finding. IMPRESSION: NEGATIVE STUDY OF THE RIGHT HIP. NO RADIOGRAPHIC EVIDENCE OF ACUTE INJURY. TECHNICAL DOCUMENTATION: JOB ID: [id number] [employer]- All Rights Reserved Reading location - IP/workstation name: [email or web address]
== END ==
LOC: RAD 13:09
PROVIDERS: ATTEND Internal Medicine
DX: M25.551 Pain in right hip (principal)

== ENCOUNTER → 2019-12-04 | Outpatient (CLI) | payer MEDICARE, OTHER ==
--- NOTE | 2019-12-04 16:23 | WOMENS IMAGING REPORT ---
EXAM DESCRIPTION: 3D SCREENING MAMMO BILAT IMAGES COMPLETED DATE/TIME: 12/04/2019 3:11 pm REASON FOR STUDY: Z12.31 ENCOUNTER FOR SCREENING MAMMOGRAM FOR MALIGNANT NEOPLASM OF BREAST Z12.31 ENCNTR SCREEN MAMMOGRAM FOR MALIGNANT NEOPLASM OF EPI COMPARISON: 09/19/2017, 09/19/2016, 12/10/2015 EXAM PARAMETERS: Views: Standard craniocaudal and mediolateral oblique views of each breast recorded using digital acquisition and breast tomosynthesis. Read with the assistance of CAD. .[facility] - R2 Face Painter Version 9.2 LIMITATIONS: None. FINDINGS: No suspicious masses, suspicious calcifications or architectural distortion. No areas of c oncern. IMPRESSION: NEGATIVE MAMMOGRAM. BIRADS 1. BREAST DENSITY: b. There are scattered areas of fibroglandular density. BIRAD: ASSESSMENT: 1 NEGATIVE RECOMMENDATION: ROUTINE SCREENING COMMENT: The patient has been notified of the results by letter per MQSA requirements. Additional no tification policies are in place for contacting patient with suspicious or incomplete findings. Quality ID #225: The [employer] recommends an annual screening mammogram for women aged 40 years or over. This facility utilizes a reminder system to ensure that all patients receive reminder letters, and/or direct phone calls for appointments. This includes reminders for routine scr eening mammograms, diagnostic mammograms, or other Breast Imaging Interventions when appropriate. Th is patient will be placed in the appropriate reminder system. TECHNICAL DOCUMENTATION: FINDING NUMBER: (1) ASSESSMENT: (1) JOB ID: [id number] 2010 [employer]- All Rights Reserved Reading location - IP/workstation name: [email or web address]
== END ==
LOC: WI 14:57
PROVIDERS: ATTEND Internal Medicine
DX: Z12.31 Encounter for screening mammogram for malignant neoplasm of breast (principal)
CPT/HCPCS: 77063; 77067